=== PATIENT | female | born 1975 | race Caucasian/White ===

== ENCOUNTER 2025-04-15 16:06 | Outpatient (REF) | payer MEDICAID, SELFPAY ==
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
[2025-04-15 18:39] LABS: Hematocrit 34.1 % (37.0-47.0); Hemoglobin 10.4 g/dl (12.0-16.0); Mean Corpuscular HGB Conc 30.5 g/dl (31.0-35.0); Mean Corpuscular Hemoglobin 19.5 pg (27.0-33.0); Mean Corpuscular Volume 64.0 fL (80.0-98.0); NRBC Abs Auto 0.000 X10*3/uL (0.0-0.012); NRBC Pct Auto 0.0 /100WBC (0.0-0.2); Platelet Count 300 X10*3/uL (160-400); Red Blood Count 5.33 X10*6/uL (4.20-5.50); White Blood Count 7.1 X10*3/uL (4.8-10.8)
[2025-04-15 19:09] LABS: Alanine Aminotransferase 27 U/L (0-31); Albumin Level 4.9 g/dL (3.5-5.0); Alkaline Phosphatase 74 U/L (39-117); Anion Gap 12 (12-20); Aspartate Amino Transferase 27 U/L (5-31); Blood Urea Nitrogen 14 mg/dL (9-16); Calcium 9.3 mg/dL (8.4-10.2); Carbon Dioxide 26 mmol/L (22-29); Chloride 105 mmol/L (96-108); Cholesterol 236 mg/dL (<200); Estimated Glomerular Filt Rate > 60; HDL Cholesterol 47 mg/dL (>40); Potassium 3.8 mmol/L (3.3-5.1); Sodium 139 mmol/L (135-145); Total Protein 7.4 g/dL (6.5-8.0); Triglycerides 221 mg/dL (<150)
[2025-04-15 19:25] LABS: Thyroid Stimulating Hormone 3.90 uIU/mL (0.32-4.0)
--- OUTSIDE RECORDS SUMMARY | 2025-04-15 20:25 | XMS_ITS | Encounter Summary ---
Author Organization [employer] Address [address] [place] [address] Care Team Providers Care Jig Bore Tool Maker Name Role Phone Bhupinder George MD Primary Care Prov ider Encounter Details Date Type Department Care Team ([facility] st Contact Info) Description 04/15/2025 Telephone C [facility] MED & PEDS [address] [place], [place] [phone] Bhupinder George MD [address] [place] [address] Social History Tobacco Use Types Packs/Day Years [...] AM EDT documented as of this encounter Miscellaneous Notes * Telephone Encounter - Nohelia Little RN - 04/15/2025 4:10 PM EDT Clarified from PCP pt labs that are needed to be ordered. documented in this encounter Plan of Treatment Upcoming Encounters Date Type Department Care Team (Late st Contact Info) Description 05/13/2025 9:00 AM EST Office Visit [facility] MED & PEDS [address] [place] [address] Bhupinder George MD [address] [place] [address] documented as of this encounter Procedures Procedure Name Priority Date/Time Associated Diagnosis Comments CBC Routine 04/15/2025 4:12 PM EDT Encounter for medical examination to establish care TSH Routine 04/15/2025 4:12 PM EDT Encounter for medical examination to establish care LIPID PANEL, STANDARD Routine 04/15/2025 4:12 PM EDT Encounter for medical examination to establish care COMPREHENSIVE METABOLIC PANEL Routine 04/15/2025 4:12 PM EDT Encounter for medical examination to establish care documented in this encounter Results * (ABNORMAL) Lipid Panel, Standard (04/15/2025 4:12 PM EDT) Triglycerides 221(H) <150 mg/dL [facility] Comment:Desirable Triglyceri de: less than 150 mg/dLBorderline High Triglyceride 150-199 mg/dLHigh Triglyceride: 200-499 mg/dLVery High Triglyceride: greater than or equal to 5OO mg/dL Cholesterol 236(H) <200 mg/dL [facility] Comment:Desirable Cholestero l: less than 200 mg/dLBorderline High Cholesterol: 200-239 mg/dLHigh Cholesterol: greater than 239 mg/dL LDL Cholesterol Calculated 145(H) <100 mg/dL [facility] Comment:Desirable LDL: less than 100 mg/dLNear Optimal/Above Optimal LDL: 110- 129 mg/dLBorderline High LDL: 130-159 mg/dLHigh LDL: 160-189 mg/dLVery High LDL: greater than or equal to 190 mg/dL HDL Cholesterol 47 >40 mg/dL [facility] Comment:Desirable HDL: great er than 40 mg/dL Note: This HDL assay may give artificially low results in patients with liver disease. Blood Venous blood specimen / Unknown 04/15/2025 4:12 PM EDT 04/15/2025 6:20 PM EDT Bhupinder Ramirez MD LAB BLOOD ORDERABL ES Final Result [facility] [address] [place] [phone] * TSH (04/15/2025 4:12 PM EDT) Thyroid Stimulating Hormone 3.90 0.32 - 4.0 uIU/mL [facility] Comment:Note: A sustained TS H level above 2.5 uIU/mL may warrant further investigation. TSH 3rd Generation ([facility]) Blood Venous blood specimen / Unknown 04/15/2025 4:12 PM EDT 04/15/2025 6:20 PM EDT Bhupinder Ramirez MD LAB BLOOD ORDERABL ES Final Result Performing Organization Address City/[facility]/ZIP Co de Phone Number [facility] [address] [place] [address] [phone] * Comprehensive Metabolic Panel (04/15/2025 4:12 PM EDT) Sodium 139 135 - 145 mmol/L [facility] Potassium 3.8 3.3 - 5.1 mmol/L [facility] Chloride 105 96 - 108 mmol/L [facility] Carbon Dioxide 26 22 - 29 mmol/L [facility] Anion Gap 12 12 - 20 [facility] Urea Nitrogen (BUN) 14 9 - 16 mg/dL [facility] Creatinine, Serum 0.62 0.5 - 1.4 mg/dL [facility] Estimated Glomerular Filt Rate >60 [facility] Comment:Chronic Kidney Disea se: Estimated GFR < 60 mL/min/[id number] Kidney Disease: Estimated GFR < 15 mL/min/1.73m2 Glucose 76 60 - 115 mg/dL [facility] Calcium 9.3 8.4 - 10.2 mg/dL [facility] Bilirubin, Total 0.4 0.0 - 1.0 mg/dL [facility] Aspartate Amino Transferase 27 5 - 31 U/L [facility] Alanine Aminotransferase 27 0 - 31 U/L [facility] Total Protein 7.4 6.5 - 8.0 g/dL [facility] Albumin Level 4.9 3.5 - 5.0 g/dL [facility] Alkaline Phosphatase 74 39 - 117 U/L [facility] Blood Venous blood specimen / Unknown 04/15/2025 4:12 PM EDT 04/15/2025 6:20 PM EDT Bhupinder Ramirez MD LAB BLOOD ORDERABL ES Final Result Performing Organization Address City/[facility]/ZIP Co de Phone Number [facility] [address] [place] [phone] [phone] * (ABNORMAL) CBC (04/15/2025 4:12 PM EDT) White Blood Count 7.1 4.8 - 10.8 X10*3/uL [facility] Red Blood Count 5.33 4.20 - 5.50 X10*6/uL [facility] Hemoglobin 10.4(L) 12.0 - 16.0 g/dl [facility] Hematocrit 34.1(L) 37.0 - 47.0 % [facility] Mean Corpuscular Volume 64.0(L) 80.0 - 98.0 fL [facility] Mean Corpuscular Hemoglobin 19.5(L) 27.0 - 33.0 pg [facility] Mean Corpuscular HGB Conc 30.5(L) 31.0 - 35.0 g/dl [facility] Red Cell Distribution Width 15.3 11.0 - 16.0 % [facility] Platelet Count 300 160 - 400 X10*3/uL [facility] Mean Platelet Volume 11.4 9.4 - 12.3 fL [facility] NRBC Pct Auto 0.0 0.0 - 0.2 /100WBC [facility] NRBC Abs Auto 0.000 0.0 - 0.012 X10*3/uL [facility] Blood Venous blood specimen / Unknown 04/15/2025 4:12 PM EDT 04/15/2025 6:16 PM EDT us Bhupinder Ramirez MD LAB BLOOD ORDERABL ES Final Result [facility] [address] [place] [phone] documented in this encounter Visit Diagnoses Diagnosis Encounter for medical examination to establish care documented in this encounter Additional Health Concerns Assessment Noted Time PHQ-9 Depression Total Score: 18 025 11:36 AM EDT documented as of this encounter Care Teams Jig Bore Tool Maker Relationship Specialty Start Date End Date Bhupinder George MD [address] [place] [phone] PCP - General Internal Medicine 02/13/25 documented as of this encounter
--- OUTSIDE RECORDS SUMMARY | 2025-04-15 20:25 | XMS_ITS | Encounter Summary ---
Author Organization [employer] Address [address] [place] [address] Care Team Providers Care Information Systems Coordinator Name Role Phone Bhupinder George MD Primary Care Prov ider Encounter Details Date Type Department Care Team (Latest Contact Info) Description 04/10/2025 Travel Social History Tobacco Use Types Packs/Day Years [...] AM EDT documented as of this encounter Plan of Treatment Upcoming Encounters Date Type Department Care Team (Late st Contact Info) Description 05/13/2025 9:00 AM EST Office Visit [facility] MED & PEDS [address] [place] [address] Bhupinder George MD [address] [place] [address] documented as of this encounter Visit Diagnoses Not on filedocumented in this encounter Additional Health Concerns Assessment Noted Time PHQ-9 Depression Total Score: 18 025 11:36 AM EDT documented as of this encounter Care Teams Information Systems Coordinator Relationship Specialty Start Date End Date Bhupinder George MD [address] [place] [address] PCP - General Internal Medicine 02/13/25 documented as of this encounter
--- OUTSIDE RECORDS SUMMARY | 2025-04-15 20:25 | XMS_ITS | Encounter Summary ---
Author Organization [employer] Address [address] [place] [address] Care Team Providers Care Ada Accommodation Consultant Name Role Phone Bhupinder George MD Primary Care Prov ider Encounter Details Date Type Department Care Team (Latest Contact Info) Description 04/14/2025 Travel Social History Tobacco Use Types Packs/Day [...] Description 05/13/2025 9:00 AM EST Office Visit [facility] MED & PEDS [address] [place] [address] Bhupinder George MD [address] [place] [address] documented as of this encounter Visit Diagnoses Not on filedocumented in this encounter Additional Health Concerns Assessment Noted Time PHQ-9 Depression Total Score: 18 025 11:36 AM EDT documented as of this encounter Care Teams Ada Accommodation Consultant Relationship Specialty Start Date End Date Bhupinder George MD [address] [place] [address] PCP - General Internal Medicine 02/13/25 documented as of this encounter
--- OUTSIDE RECORDS SUMMARY | 2025-04-15 20:25 | XMS_ITS | Encounter Summary ---
Author Organization [employer] Address [address] [place] [address] Care Team Providers Care Adjunct Professor Of Voice Name Role Phone Bhupinder George MD Primary Care Prov ider Encounter Details Date Type Department Care Team (Latest Contact Info) Description 04/15/2025 Travel Social History Tobacco Use Types Packs/Day [...] Description 05/13/2025 9:00 AM EST Office Visit [facility] MED & PEDS [address] [place] [address] Bhupinder George MD [address] [place] [address] documented as of this encounter Visit Diagnoses Not on filedocumented in this encounter Additional Health Concerns Assessment Noted Time PHQ-9 Depression Total Score: 18 025 11:36 AM EDT documented as of this encounter Care Teams Adjunct Professor Of Voice Relationship Specialty Start Date End Date Bhupinder George MD [address] [place] [address] PCP - General Internal Medicine 02/13/25 documented as of this encounter
--- OUTSIDE RECORDS SUMMARY | 2025-04-15 20:25 | XMS_ITS | Patient Health Record ---
Author Organization [facility] Address [address] [place] [address] Care Team Providers Care Electric Dolly Operator Name Role Phone Mary Ellen Gordon Primary Care Provider Ross Florez Unavailable [phone] Allergies Allergen (clinical drug ingredient) Drug/Non Drug Allergy documented on EMR Reaction Allergy Type Onset Date Status clindamycin Clindamycin thrush Drug Allergy Act martita Reason For Referral No Information Medications Medication SIG (Take, Route, Frequency, Duration) Notes Start Date End Date Status Multivitamin Not-Bashir ing Night Splint AFO - L1930 as directed 09/03/2015 Not-Taking clonazePAM Active Omeprazole Not-Takin g Venlafaxine HCl ER 75 MG 1 capsule with food Orally Once a day Not-Taking Medrol (Joe) 4 MG as directed Orally 09/22/2015 Not-Taking Multivitamin Active Tylenol Arthritis Pain Active Citalopram Hydrobromide 40 MG 0.5 tablet Orally Once a day; Duration: 30 day(s) Active Social History Tobacco use other than smoking: Question Answer Notes Are you an other tobacco user? No Problems No Known Problems Plan Of Treatment No Information Insurance Providers Payer Name Payer Address Payer Phone Subscriber Number Group Number Insured Name Patient Relationship to Insured Coverage Start Date Coverage End Date [facility] [address] [place] [address] [id number] Isabelle Silva Self - patient is the insured Medical (General) History Medical History History ICD Code Anemia Anxiety renal cell cancer, kidney cancer Depression Chicken pox Surgical History Surgery Date(Month/Year) partial Nephrectomy 08/26/2010 Hernia Repair x3 / small bowel obstructi on [id number] tubal ligation
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
--- OUTSIDE RECORDS SUMMARY | 2025-04-15 20:25 | XMS_ITS | Encounter Summary ---
Author Organization [employer] Address [address] [place] [address] [address] [place] [address] Care Team Providers Care Social Media Specialist Name Role Phone Bhupinder George MD Primary Care Prov ider Reason for Visit * Reason Onset Date Comments chart prep 04/11/2025 Encounter Details Date Type Department Care Team ([facility] Contact Info) Description 04/11/[address] [facility] [address] [place] [address] Bhupinder George MD [address] [place] [address] chart prep Social History Tobacco Use Types Packs/Day Years [...] encounter Miscellaneous Notes * Telephone Encounter - Saida Crowell MA - 04/11/2025 2:14 PM EDT Chart Prep Labs: not applicable Images: done Referrals: appointment pending Vaccines due: Covid, Flu, PCV20, Tdap, Hep B, and Zoster Screenings: colonoscopy, mammogram, and pap smear Overdue care gaps: Not applicable documented in this encounter Plan of Treatment Upcoming Encounters Date Type Department Care Team ([facility] st Contact Info) Description 05/13/2025 9:00 AM EST Office Visit [facility] [address] [place] [address] Bhupinder George MD [address] [place] [address] documented as of this encounter Visit Diagnoses Not on filedocumented in this encounter Additional Health Concerns Assessment Noted Time PHQ-9 Depression Total Score: 18 025 11:36 AM EDT documented as of this encounter Care Teams Social Media Specialist Relationship Specialty Start Date End Date Bhupinder George MD [address] [place] [address] PCP - General Internal Medicine 02/13/25 documented as of this encounter
--- OUTSIDE RECORDS SUMMARY | 2025-04-15 20:25 | XMS_ITS | Clinical Summary ---
Author Organization [facility] Address [address] [place] [address] Care Team Providers Care Copyright Expert Name Role Phone Unavailable Primary Care Provider Unavailabl e Allergies No known active allergies Immunizations Name Administration Dates Next Due Covid-19 (Pfizer) Dilution Required 08/13/2020,0 07/16/2020 Social History Tobacco Use Types Packs/Day Years Used Date Smoking Tobacco: Never Assessed Sex and Gender Information Value Date Recorded Sex Assigned at Female 08/13/2020 11:41 AM EST Gender Identity Not on file Sexual Orientation Not on file Plan of Treatment Health Maintenance Due Date Last Done Comments Hepatitis B Vaccines (1 of 3 - 3-dose series) 1973 Hepatitis C Screening 1973 Depression Screening 1985 Preventative Health Evaluation 1991 DTap / Tdap / Td (1 - Tdap) 1992 Cervical Cancer Screening (Pap Smear) 1994 Colon Cancer Screening (Colonoscopy) 2018 Breast Cancer Screening (Mammogram) 2023 Shingrix-Zoster Vaccine (1 o f 2) 2023 COVID-19 Vaccine (3 - 2024-2 6 season) 2025 08/13/2020, 07/16/2020 Influenza Vaccine (#1) 2025 Pneumococcal Vaccine Aged Out No long er eligible based on patient's age to complete this topic RSV Ped < 20 months Aged Out No longe r eligible based on patient's age to complete this topic
--- OUTSIDE RECORDS SUMMARY | 2025-04-15 20:26 | XMS_ITS ---
Author Name [facility] Organization Unknown Care Team Organization Name Specialty Phone Email Start Date End Da te [facility] 05/04/2022 02/13/2024
--- OUTSIDE RECORDS SUMMARY | 2025-04-15 20:26 | XMS_ITS | Encounter Summary ---
Author Organization [employer] Address [address] [place] [address] [address] [place] [address] Care Team Providers Care Urgent Care Nurse Practitioner Name Role Phone Bhupinder George MD Primary Care Prov ider Encounter Details Date Type Department Care Team (Late st Contact Info) Description 04/02/2025 Results Follow-Up [facility] [address] [place], [place] [phone] Bg Noel CNP [address] [place], [place] [phone] XR Ribs 2 Views Left Social History Tobacco Use Types Packs/Day Years Used Date Smoking Tobacco: Never Smokeless Tobacco: Never Alcohol Use Standard Drinks/Week Comments Not Currently 0 (1 standard drink = 0.6 oz pur e alcohol) stop 2 years ago Depression Answer Date Recorded Patient Health Questionnaire-9 Score 18 03/22/2025 Patient Health Questionnaire-9 Score 18 03/22/2025 Last PHQ-9: Questionnaire Data Not on file 0 03/22/2025 Depression Answer Date Recorded Patient Health Questionnaire-2 Score 5 03/22/2025 Comments Unknown Sex and Gender Information Value Date Recorded Sex Assigned at Female 02/13/2025 10:47 AM EDT Legal Sex Female 2:51 PM EDT Gender Identity Female 02/13/2025 10:47 AM EDT Sexual Orientation Straight 02/13/2025 10 :47 AM EDT documented as of this encounter Miscellaneous Notes * Result Encounter Note - Bg Noel CNP - 04/02/2025 9:09 AM EDT Please let patient know that her XR of her ribs and her back came back negative for abnormalities or fracture. Dependent on her recent pain level I can refer her to ortho for further evaluation. Thanks! documented in this encounter Plan of Treatment Upcoming Encounters Date Type Department Care Team (Late st Contact Info) Description 05/13/2025 9:00 AM EST Office Visit [facility] [address] [place] [address] Bhupinder George MD [address] [place] [address] documented as of this encounter Visit Diagnoses Not on filedocumented in this encounter Additional Health Concerns Assessment Noted Time PHQ-9 Depression Total Score: 18 025 11:36 AM EDT documented as of this encounter Care Teams Urgent Care Nurse Practitioner Relationship Specialty Start Date End Date Bhupinder George MD [address] [place] [address] PCP - General Internal Medicine 02/13/25 documented as of this encounter
--- OUTSIDE RECORDS SUMMARY | 2025-04-15 20:26 | XMS_ITS | Clinical Summary ---
Author Organization [facility] Address [address] [facility] [address] [place] [phone] Phone Care Team Providers Care Riding Double Name Role Phone Bhupinder George MD Primary Care Prov ider Active Problems Problem Noted Date Diagnosed Date ERIS (generalized anxiety disorder) 03/27/2025 Other chronic pain 03/27/2025 Medical cannabis use 03/27/2025 Generalized anxiety disorder 03/22/2025 Encounters Date Type Department Care Team Description 03/27/2025 3:15 PM EDT Telemedicine [facility] [address] [place] [address] Keyon Rashid NP ERIS (generalized anxiety disorder) (Primary Dx); Other chronic pain; Medical cannabis use from Last 3 Months Social History Tobacco Use Types Packs/Day Years Used Date Smoking Tobacco: Never Assessed Education Answer Date Recorded Are you interested in more education? Not on luis e 03/26/2025 Are you concerned about learning? Not on file 03/26/2025 No 03/26/2025 No 03/26/2025 Digital Access Answer Date Recorded No 03/26/2025 No 03/26/2025 Reliable internet access at home? Not on file 03/26/2025 Device with a working camera? Not on file Comments Unknown Sex and Gender Information Value Date Recorded Sex Assigned at Female 03/26/2025 6:34 PM EDT Legal Sex Female 7:12 PM EDT Gender Identity Female 03/26/2025 6:34 PM EDT Sexual Orientation Not on file Plan of Treatment Upcoming Encounters Date Type Department Care Team (Late st Contact Info) Description 09/18/2025 3:15 PM EDT [facility]icine [facility] [address] [facility] [place] [address] Keyon Rashid NP [address] [facility] [address] [place] [address] [email or web address] Health Maintenance Due Date Last Done Comments LIPID PANEL 1973 DEPRESSION SCREENING 1985 SMOKING Hx and SMOKELESS TOB ACCO SCREENING 1986 HEPATITIS C SCREENING 1991 HIV ONE-TIME SCREENING (18-6 5 YEARS) 1991 PAP SMEAR 1994 MAMMOGRAM 2013 COLOGUARD 2018 COLONOSCOPY 2018 COLORECTAL CANCER SCREENING 2018 FIT TEST 2018 FOBT 2018 SIGMOIDOSCOPY 2018 VIRTUAL COLONOSCOPY 2018 PNEUMOCOCCAL VACCINES (50+ y ears) (1 of 1 - PCV) 2023 ZOSTER VACCINES (1 of 2) 2023 Adult Td,Tdap Booster 02/22/2024 02/21/2014 INFLUENZA VACCINE (#1) 2025 COVID-19 VACCINE (1 - 2024-2 6 season) 2025 RSV VACCINE (1 - 1-dose 75+ series) 2048 HEPATITIS A VACCINES Aged Out No long er eligible based on patient's age to complete this topic HIB VACCINES Aged Out No longer eligi ble based on patient's age to complete this topic MENINGOCOCCAL VACCINES (ACWY) Aged Out No longer eligible based on patient's age to complete this topic MENINGOCOCCAL VACCINES (B) Aged Out N o longer eligible based on patient's age to complete this topic Medical Devices Not on file Insurance [facility] C3 ACO Care Teams Riding Double Relationship Specialty Start Date End Date Bhupinder George MD [address] [place] [id number] PCP - General Internal Medicine 03/26/25 Additional Source Comments The information contained in this document represents components of the legal health record. It is not the complete legal health record.[facility]
--- OUTSIDE RECORDS SUMMARY | 2025-04-15 20:26 | XMS_ITS | Encounter Summary ---
Author Organization [employer] Address [address] [place] [address] 7 [place] [address] Care Team Providers Care Awnings Mechanic Name Role Phone Bhupinder George MD Primary Care Prov ider Encounter Details Date Type Department Care Team (Late Contact Info) Description 03/04/2025 Orders Only [facility] [address] [place] [address] ProviderCarl MD Social History Tobacco Use Types Packs/Day Years Used Date Smoking Tobacco: Never Smokeless Tobacco: Never Alcohol Use Standard Drinks/Week Comments Not Currently 0 (1 standard drink = 0.6 oz pur e alcohol) stop 2 years ago Comments Unknown Sex and Gender Information Value Date Recorded Sex Assigned at Female 02/13/2025 10:47 AM EDT Legal Sex Female 2:51 PM EDT Gender Identity Female 02/13/2025 10:47 AM EDT Sexual Orientation Straight 02/13/2025 10 :47 AM EDT documented as of this encounter Plan of Treatment Upcoming Encounters Date Type Department Care Team (Late Contact Info) Description 05/13/2025 9:00 AM EST Office Visit [facility] [address] [place] [address] Bhupinder George MD [address] [place] [address] documented as of this encounter Procedures Procedure Name Priority Date/Time Associated Diagnosis Comments CT HEAD WO CONTRAST Routine 01/28/2025 10:[address] CERVICAL SPINE WO CONTRAST Routine 01/28/2025 10:04 AM EDT documented in this encounter Results * CT HEAD WO CONTRAST (01/28/2025 10:15 AM EDT) Anatomical Region Laterality Modality Computed Tomogra phy us Historical Provider MD [facility] CT PROCEDURES Final R esult * CT Cervical Spine w/o Contrast (01/28/2025 10:04 AM EDT) Anatomical Region Laterality Modality Spine, C-spine Computed Tomogra phy us Historical Provider MD [facility] CT PROCEDURES Final R esult documented in this encounter Visit Diagnoses Not on filedocumented in this encounter Care Teams Awnings Mechanic Relationship Specialty Start Date End Date Bhupinder George MD [address] [place] [phone] PCP - General Internal Medicine 02/13/25 documented as of this encounter
== END 2025-04-15 16:07 | disposition home or self-care (01) ==
LOC: HO.CHCLDS 16:06
PROVIDERS: Visit Provider Internal Medicine
DX: Z00.00 Encounter for general adult medical examination without abnormal findings (principal)
CPT/HCPCS: 36415; 80053; 80061; 84443; 85027

== ENCOUNTER 2025-05-22 15:12 | Outpatient (REF) | payer MEDICAID, SELFPAY ==
--- OUTSIDE RECORDS SUMMARY | 2025-05-21 17:40 | XMS_ITS | Encounter Summary ---
Author Organization [employer] Address [address] [place] [address] 7 [place] [address] Care Team Providers Care Senior Bookkeeper Name Role Phone Bhupinder George MD Primary Care Prov ider Reason for Referral * Imaging (STAT) - Authorized Specialty Diagnoses / Procedures Referred By Millie montgomery Referred To Contact Radiology Diagnoses Rectal bleeding Procedures CT Abdomen Pelvis w/ Contrast Bg Noel CNP [address] [place] [address] Phone: tel: fax: [facility] [address] [facility], [address] [place] [address] Phone: tel: fax: Referral ID Status Reason Start Date Expiration Date V isits Requested Visits Authorized [id number] Authorized 05/21/2025 05/21/2026 1 1 Encounter Details Date Type Department Care Team (Late st Contact Info) Description 05/21/2025 5:40 PM EST Office Visit [facility] [address] [phone] Bg Noel CNP [address] [place], [place] [phone] Rectal bleeding (Primary Dx); Right lower quadrant abdominal pain Social History Tobacco Use Types Packs/Day Years [...] Access Q2 Not on file 04/10/2025 Comments No Sex and Gender Information Value Date Recorded Sex Assigned at Female 02/13/2025 10:47 AM EDT Legal Sex Female 2:51 PM EDT Gender Identity Female 02/13/2025 10:47 AM EDT Sexual Orientation Straight 02/13/2025 10 :47 AM EDT documented as of this encounter Last Filed Vital Signs Vital Sign Reading Time Taken Comments Blood Pressure 144/86 05/21/2025 5:13 PM EST Pulse 76 05/21/2025 5:13 PM EST Temperature 36.9 C (98.4 F) 05/21/2025 5:13 PM EST Respiratory Rate 20 05/21/2025 5:13 PM EST Oxygen Saturation 98% 05/21/2025 5:13 PM EST Inhaled Oxygen Concentration - - Weight 95.7 kg (211 lb) 05/21/2025 5:13 PM EST Height 172.7 cm (5' 8 ) 05/21/2025 5:13 PM EST Body Mass Index 32.08 05/21/2025 5:13 PM EST documented in this encounter Progress Notes * Alexxis Noel, TILE FINISHER - 05/21/2025 5:40 PM EST Isabelle Silva is a 49 y.o. female who presents for a acute visit. HPI -Reports intense nausea and vomiting that started Tuesday accompanied by abdominal pain, bloody diarrhea, and diaphoresis -reports she was at home at the time and she tried to have her son bring her to the ED, instead sheended up staying home hydrating and went to bed. -She denies any known triggers, no no foods, new medications including Wellbutrin. -reports positive history of IBS, not currently on any medications for this condition. -she denies current fever or chills but she is endorsing lower abdominal pain on her right side. She reports her last BM was Tuesday. Denies rectal bleeding since then. -reports prior episodes similar to this one in the past but not as severe. -ongoing history of anxiety with panic. Problem List[1] Allergies[2] Review of Systems Vitals: 05/21/25 1713 BP: (!) 144/86 BP Location: Left arm Patient Position: Sitting BP Cuff Size: Adult Pulse: 76 Resp: 20 Temp: 98.4 ??F (36.9 ??C) TempSrc: Oral SpO2: 98% Weight: 211 lb (95.7 kg) Height: 5' 8 (1.727 m) Physical Exam Constitutional: Appearance: Normal appearance. She is normal weight. Cardiovascular: Rate and Rhythm: Normal rate and regular rhythm. Pulses: Normal pulses. Heart sounds: Normal heart sounds. No murmur heard. No friction rub. No gallop. Pulmonary: Effort: Pulmonary effort is normal. No respiratory distress. Breath sounds: Normal breath sounds. No wheezing or rales. Abdominal: General: Bowel sounds are normal. Palpations: Abdomen is soft. Tenderness: There is abdominal tenderness. There is guarding and rebound. Comments: +RLQ Neurological: General: No focal deficit present. Mental Status: She is alert and oriented to person, place, and time. Psychiatric: Mood and Affect: Mood normal. Behavior: Behavior normal. Thought Content: Thought content normal. Judgment: Judgment normal. Problem List Items Addressed This Visit None Visit Diagnoses Rectal bleeding - Primary Relevant Medications dicyclomine (Bentyl) 10 MG capsule Other Relevant Orders CBC auto differential Fecal Globin By Immunochemistry Comprehensive Metabolic Panel Iron And Total Iron Binding Capacity CT Abdomen Pelvis w/ Contrast Right lower quadrant abdominal pain Relevant Medications dicyclomine (Bentyl) 10 MG capsule Based on presenting symptoms and abdominal exam, I did recommend urgent evaluation in the ED but ptdeclined due to her anxiety worsening in this setting. She is hemodynamically stable and afebrile in office. Therefore, STAT CT scan ordered and lab work ordered to r/o infectious cause, and help with source of bleeding. Differentials: IBS flare, internal/external hemorrhoids, appendicitis ED precautions discussed for progressive symptoms including symptoms of extensive blood loss I also prescribed bentyl to aid in symptoms. Current Medications[3] [1] Patient Active Problem List Diagnosis Encounter for medical examination to establish care H/O partial nephrectomy Beta thalassemia (CMS/HCC) (FORMERLY [facility]) Class 1 obesity Colon, diverticulosis Depression Irritable bowel syndrome Menorrhagia Migraine Renal stone Dysfunctional uterine bleeding Varicose veins of legs History of partial nephrectomy Ovarian cyst ERIS (generalized anxiety disorder) Moderately severe major depression (CMS/HCC) ([facility]ER[facility]) Anticipatory anxiety Medical cannabis use Osteoarthrosis involving multiple sites but not generalized Other chronic pain Generalized anxiety disorder Acute bilateral low back pain without sciatica [2] Allergies Allergen Reactions Clindamycin Other Other Reaction(s): thrush Oxycodone-Acetaminophen Other Reaction(s): [D]Nausea and vomiting NOS [3] Current Outpatient Medications: acetaminophen (Tylenol 8 Hour) 650 MG ER tablet, Take 650 mg by mouth every 8 (eight) hours if needed for mild pain. Do not crush, chew, or split., Disp: , Rfl: Blood Pressure kit, Check blood pressure twice daily. Once in the morning and once in the evening.,Disp: 1 kit, Rfl: 0 buPROPion (Wellbutrin) 75 MG tablet, Take 1 tablet (75 mg) by mouth 2 times daily., Disp: 60 tablet, Rfl: 11 cholecalciferol (Vitamin D-3) 25 MCG (1000 UT) capsule, Take 1,000 Units by mouth Once per day., Disp: , Rfl: citalopram (CeleXA) 40 MG tablet, Take 1 tablet (40 mg) by mouth Once per day., Disp: 90 tablet, Rfl: 1 clonazePAM (KlonoPIN) 0.5 MG tablet, Take 1 tablet (0.5 mg) by mouth if needed for anxiety for up to 14 days., Disp: 14 tablet, Rfl: 0 clonazePAM (KlonoPIN) 0.5 MG tablet, TAKE 1 TABLET(0.5 MG) BY MOUTH FOR UP TO 14 DAYS NEEDED FORANXIETY, Disp: 14 tablet, Rfl: 0 dicyclomine (Bentyl) 10 MG capsule, Take 1 capsule (10 mg) by mouth 4 times daily., Disp: 120 capsule, Rfl: 11 hydrOXYzine HCl (Atarax) 25 MG tablet, Take 1 tablet (25 mg) by mouth if needed in the morning, at noon, and at bedtime for itching., Disp: 90 tablet, Rfl: 3 lidocaine (Lidoderm) 5 % patch, Apply 3 patches topically Once per day. Remove & discard patch within 12 hours or as directed by MD., Disp: 90 patch, Rfl: 0 meloxicam (Mobic) 15 MG tablet, Take 15 mg by mouth Once per day., Disp: , Rfl: Multiple Vitamin (multivitamin) tablet, Take 1 tablet by mouth Once per day., Disp: , Rfl: tiZANidine (Zanaflex) 4 MG tablet, Take 1 tablet (4 mg) by mouth every 8 (eight) hours if needed for muscle spasms for up to 10 days., Disp: 30 tablet, Rfl: 0 traMADol (Ultram) 50 MG tablet, TAKE 1 TABLET(50 MG) BY MOUTH EVERY 6 HOURS FOR UP TO 5 DAYS NEEDED FOR SEVERE PAIN, Disp: 15 tablet, Rfl: 0 Current Facility-Administered Medications: naloxone (Narcan) nasal spray 4 mg, 4 mg, Nasal, Once, Bg Noel CNP documented in this encounter Plan of Treatment Upcoming Encounters Date Type Department Care Team (Late st Contact Info) Description 06/11/2025 9:00 AM EST Procedure Visit [facility] [address] [place] [address] Cristal Marie MD [address] [place] [address] 06/14/2025 9:30 AM EST Office Visit [facility] [address] [place] [address] Bhupinder George MD [address] [place] [address] Scheduled Orders Name Type Priority Associated Diagnoses Orde r Schedule CBC auto differential Lab Routine Rectal bleeding Expected: 05/21/2025 (Approximate), Expires: 05/21/2026 Fecal Globin By Immunochemistry Lab Routine Rectal bleeding Expected: 05/21/2025 (Approximate), Expires: 05/21/2026 Comprehensive Metabolic Panel Lab Routine Rectal bleeding Expected: 05/21/2025 (Approximate), Expires: 05/21/2026 Iron And Total Iron Binding Capacity Lab Routine Rectal bleeding Expected: 05/21/2025, Expires: 05/21/2026 CT Abdomen Pelvis w/ Contrast Imaging STAT Rectal bleeding Expected: 05/21/2025, Expires: 05/21/2026 documented as of this encounter Visit Diagnoses Diagnosis Rectal bleeding- Primary Hemorrhage of rectum and anus Right lower quadrant abdominal pain documented in this encounter Additional Health Concerns Assessment Noted Time PHQ-9 Depression Total Score: 18 025 11:36 AM EDT documented as of this encounter Care Teams Senior Bookkeeper Relationship Specialty Start Date End Date Bhupinder George MD [address] [place] [address] PCP - General Internal Medicine 02/13/25 documented as of this encounter
--- OUTSIDE RECORDS SUMMARY | 2025-05-22 17:41 | XMS_ITS | Encounter Summary ---
Author Organization [employer] Address [address] [place] [address] [address] [place] [address] Care Team Providers Care Mesh Cutter Name Role Phone Bhupinder George MD Primary Care Prov ider Encounter Details Date Type Department Care Team (Late st Contact Info) Description 04/02/2025 Results Follow-Up [facility] [address] [place], [place] [phone] Bg Noel CNP [address] [place], [place] [phone] XR Ribs 2 Views Left Social History [...] Description 06/11/2025 9:00 AM EST Procedure Visit [facility] [address] [place] [address] Cristal Marie MD [address] [place] [address] 06/14/2025 9:30 AM EST Office Visit [facility] [address] [place] [address] Bhupinder George MD [address] [place] [address] documented as of this encounter Visit Diagnoses Not on filedocumented in this encounter Additional Health Concerns Assessment Noted Time PHQ-9 Depression Total Score: 18 025 11:36 AM EDT documented as of this encounter Care Teams Mesh Cutter Relationship Specialty Start Date End Date Bhupinder George MD [address] [place] [address] PCP - General Internal Medicine 02/13/25 documented as of this encounter
--- OUTSIDE RECORDS SUMMARY | 2025-05-22 17:41 | XMS_ITS | Clinical Summary ---
Author Organization [facility] Address [address] [place] [address] Care Team Providers Care Watch Repairer Apprentice Name Role Phone [place] aCtes MD Primary Care Provide r Social History Tobacco Use Types Packs/Day Years Used Date Smoking Tobacco: Never Smokeless Tobacco: Never Comments Unknown Sex and Gender Information Value Date Recorded Sex Assigned at Not on file Legal Sex Female 8:46 AM EST Gender Identity Not on file Sexual Orientation Not on file Obstetrics History Last Filed Vital Signs Vital Sign Reading Time Taken Comments Blood Pressure 131/81 09/20/2023 5:26 PM EDT Pulse 73 09/20/2023 5:26 PM EDT Temperature - - Respiratory Rate - - Oxygen Saturation - - Inhaled Oxygen Concentration - - Weight - - Height - - Body Mass Index - - Plan of Treatment Health Maintenance Due Date Last Done Comments Colorectal Cancer Screening: Colonoscopy 1973 Hepatitis B Vaccines (1 of 3 - 19+ 3-dose series) 1992 Pneumococcal Vaccine: 50+ Years (1 of 2 - PCV) 1992 Cervical Cancer Screening: P ap Smear 1994 Breast Cancer Screening 03/17/2020 03/17/2018 HIV Screening 05/30/2022 Hepatitis C Screening 05/30/2022 Social Influencers of Health Screening 05/30/2022 RSV Immunization Adult Patients (1 - Risk 50-74 years 1-dose series) 2023 Zoster Vaccines (1 of 2) 2023 DTaP,Tdap,and Td Vaccines (3 - Td or Tdap) 02/22/2024 02/21/2014, 08/08/1998 Depression Screening 06/27/2024 COVID-19 Vaccine (3 - 2024-2 6 season) 2025 08/13/2020, 07/16/2020 Influenza Vaccine (#1) 2025 02/25/2015 HIB Vaccines Aged Out No longer eligi [...] on patient's age to complete this topic MMR Vaccines Aged Out No longer eligi ble based on patient's age to complete this topic Meningococcal ACWY Vaccine Aged Out N o longer eligible based on patient's age to complete this topic Meningococcal B Vaccine Aged Out No l onger eligible based on patient's age to complete this topic RSV Immunization Patients Under 20 months Aged Out No longer eligible b ased on patient's age to complete this topic Varicella Vaccines Aged Out No longer eligible based on patient's age to complete this topic Procedures Procedure Name Priority Date/Time Associated Diagnosis Comments [facility] SCREENING DIGITAL Routine 03/17/2018 1:54 PM EDT Encounter for screening mammogram for malignant neoplasm of breast from Last 3 Months or Most Recently Relevant to Health Maintenance Results * [facility] SCREENING DIGITAL (03/17/2018 1:54 PM EDT) Anatomical Region Laterality Modality Mammography 03/14/2018 1:49 PM EDT Narrative 03/17/2018 1:54 PM EDT [facility] Diagnostic Imaging Department [address] [place] [address] Patient: VICKEY,ISABELLE Zimmerman /Age/Sex: 1975 - 42 - F Unit#: [id number] Location/Status: [facility]/REG CLI Mnemonic/Ordering Site: [facility] Ordering Physician: HERNANDEZ MARTINEZ MD Mayela Screening Digital - 03/16/18 - 1723 History: Bilateral breast cancer screening. Technique: Digital mammography. Conventional CC and MLO projections with tomosynthesis MLO views and computer aided detection. Comparison made with previous mammograms from 03/09/2017, 07/30/2015 and 01/28/2014. Correlation made with previous left breast ultrasound imaging most recently 03/11/2017. Findings: Breast tissue consists of fatty and fibroglandular tissue with moderate complexity, potentially obscuring small lesions, category c density. Tissue asymmetries including discrete oval asymmetries within the mid left breast corresponding with cystic changes shown on ultrasound are without concerning interval change. There is no suspicious group of microcalcification, suspicious mass, architectural distortion or suspicious change in breast density within either breast. Impression: No mammographic evidence of malignancy. BIRADS Category 2: Benign Findings, 3342F [id number], [id number] A negative mammogram in the face of a suspicious abnormality does not exclude the possibility of malignancy nor alter the indications for biopsy. Note: Patient information entered into a reminder system with a target due date for the next mammogram; PQRI II [id number] Dictating Physician: ОЛЕГ CARMICHAEL MD Electronically Signed by: ОЛЕГ CARMICHAEL MD Dic Date/Time: 03/17/18 1352 Sign date/Time: 03/17/18 1354 Procedure Note Олег Carmichael MD - 06/15/2022 [facility] Diagnostic Imaging Department [address] [place] [address] Patient: ISABELLE HURD /Age/Sex: 1975 - 42 - F Unit#: [id number] Location/Status: [facility]/REG CLI Mnemonic/Ordering Site: [facility] Ordering Physician: HERNANDEZ MARTINEZ MD Mayela Screening Digital - 03/16/18 - 1722 History: Bilateral breast cancer screening. Technique: Digital mammography. Conventional CC and MLO projectionswith tomosynthesis MLO views and computer aided detection. Comparison made with previous mammograms from 03/09/2017, 07/30/2015 and01/28/2014. Correlation made with previous left breast ultrasound imaging mostrecently 03/11/2017. Findings: Breast tissue consists of fatty and fibroglandular tissue with moderate complexity, potentially obscuring small lesions, category cdensity. Tissue asymmetries including discrete oval asymmetries within the midleft breast corresponding with cystic changes shown on ultrasound are without concerning interval change. There is no suspicious group ofmicrocalcification, suspicious mass, architectural distortion or suspicious change in breastdensity within either breast. Impression: No mammographic evidence of malignancy. BIRADS Category 2: Benign Findings, [id number] [id number], [id number] A negative mammogram in the face of a suspicious abnormality does notexclude the possibility of malignancy nor alter the indications for biopsy. Note: Patient information entered into a reminder system with a targetdue date for the next mammogram; PQRI II [id number] Dictating Physician: ОЛЕГ CARMICHAEL MD Electronically Signed by: ОЛЕГ CARMICHAEL MD Dic Date/Time: 03/17/18 1351 Sign date/Time: 03/17/18 1351 us Hernandez Martinez MD IMG BI PROCEDURES Final Result from Last 3 Months or Most Recently Relevant to Health Maintenance Care Teams Watch Repairer Apprentice Relationship Specialty Start Date End Date Christopher Cates MD PCP - General Internal Medicine 12/04/18
--- OUTSIDE RECORDS SUMMARY | 2025-05-22 17:41 | XMS_ITS | Clinical Summary ---
Author Organization [facility] Address [address] [place] [address] Care Team Providers Care Auto Leasing Manager Name Role Phone Unavailable Primary Care Provider [...]
--- OUTSIDE RECORDS SUMMARY | 2025-05-22 17:41 | XMS_ITS | Data Portability ---
Author Organization BARBARA Ray [facility], [address] Address [address] [place] [address] Care Team Providers Care Sheet Tester Name Role Phone KARYN MTZ Primary Care Provider Assessment No assessment recorded. Plan of Treatment Reminders Order Date Submit Date Provider Last Modified By Organization Details Last Modified Time Details Appointments None recorded. Lab rapid strep group A, throat 2022 023 [email or web address], [address] [place], [address], 3 11:56:26 mononucleos is, heterophile Ab, blood 2022 023 [email or web address], [address] [place], [address], 3 11:56:27 streptococc us group A, culture, throat 2022 023 [facility], [address] [place] [address], [place], [address], 3 16:06:58 Referral None recorded. Procedures None recorded. Surgeries None recorded. Imaging None recorded. Medication Orders doxycycline hyclate 100 mg capsule 2022 023 [id number], [address], [place], [phone], 3 11:58:19 Patient TargetsNo targets recorded. Patient Instructions Encounter Date Encounter Id Patient Instructions Last Modified By Organization Details Last Modified Time 02/06/2023 [id number] sore throat: car e instructions Not available 02/06/2023 11:56:22 Your sore throat is possible caused by a virus or by strep which wasn't picked up on the rapid. We are going to send the culture to the lab to confirm and you will be notified when results are available. You do not need antibiotics at this time, continue to treat your symptoms with fluids rest tylenol and ibuprofen. If your culture comes back positive you may need antibiotics at that time and they would be sent in to your pharmacy. Follow up with your PCP as needed. As for the infection on neck take the antibiotic as directed and now that it has been opened it should begin to heal. Monitor for worsening symptoms and if it continue to worsen while on antibiotics please go to the ED for eval as this is a sign of resistant infection . Not available 02/06/2023 11:59:07 Reason for Referral None Reported. Results Created Date Observation Date Name Description Value Unit Range Abnormal Flag Note LastModifiedBy Organization Detail LastModifiedTime 02/07/2002/08/2023 BETA STREP GP A CULTU RE beta strep gp A culture COMMEN T abnormal Beta- hemol ytic colon ies, not group A Strep tococ cus isola neela. Refer ence Range : Negat martita Penic illin and ampic illin are drugs of choic e for treat ment of beta- hemol ytic strep tococ lexi infec tions . Susce ptibi lity testi ng of penic illin s and other beta- lacta m agent s appro raphael by the FDA for treat ment of beta- hemol ytic strep tococ lexi infec tions need not be perfo rmed routi tammy becau se nonsu scept ible isola yvrose are extre esequiel rare in any beta- hemol ytic strep tococ cus and have not been repor neela for Strep tococ cus pyoge josue (grou p A). (CLSI ) Not Available [facility] ([facility]) [address] [facility], [place], [address], 02/08/2023 16:06:58 02/07/2002/06/2023 monon ucleo sis, heter ophil e Ab, blood Unknown Analyte negati ve Not Available [address] [place], [address], 02/06/2023 11:29:05 02/07/2002/06/2023 rapid strep group A, throa t Unknown Analyte negati ve Not Available [address] [place], [address], 02/06/2023 11:00:18 Result Notes None recorded. Problems Name Problem SNOMED Code Status Onset Date Resolution Date Notes Provider Name and Address Organization Details Recorded Time Malignant neoplasm of kidney 005547637 Completed 202202/06/2023 JOSEPH DRINKWINE null, [place] - [facility] 3 10:52:35 Beta thalassemia 80290594 Active 2022 JOSEPH DRINKWINE null, [place] - [facility] 3 10:53:04 Anxiety 12104672 Active 2022 JOSEPH DRINKWINE null, [place] - [facility] 3 10:53:12 Depressive disorder 05181262 Active 2022 JOSEPH DRINKWINE null, [place] - [facility] 3 10:53:22 Problem Notes None recorded. Procedures Surgical History Date Name Laterality Status Provider Name and Address Organization Details Recorded Time 02/07/20 I&D, without packing completed BARBARA Rangel [address] [place], [place] [address], [address], [place] - [facility] 02/06/2023 12:00:43 hernia repair completed JOSEPH DRINKWINE P A - [facility] 02/06/2023 10:53:39 partial nephrectomy completed JOSEPH DRINKWINE [place] - [facility] 02/06/2023 10:53:53 Imaging Results None recorded. Procedure Notes None recorded. Medical Equipment None Reported. Allergies Allergen ID Allergen Name Allergen Category Reaction Reaction Severity Criticality Documentation Date Start Date Code Code System Note Provider Name and Address Organization Details Recorded Time 932650 clindamyc in Not available rash Not available Not available 02/06/2023 2582 RxNorm thrus h BARBAR[facility] 3 10:50:58 Medications Name Sig Start Date Stop Date Status Note LastModified by Organization Details LastModified Time nystatin 100,000 unit/mL oral suspension TAKE 4 ML BY MOUTH 4 TIMES A DAY 02/06 completed Not Available Not Available Not Available doxycycline hyclate 100 mg capsule TAKE 1 CAPSULE BY MOUTH TWICE DAILY FOR 7 DAYS active Not Available Not Available No t Available clindamycin HCl 300 mg capsule TAKE 1 CAPSULE BY MOUTH EVERY 6 HOURS FOR 7 DAYS 02/06 completed Not Available Not Available Not Available citalopram 40 mg tablet active Not Available Not Available Not Available fluconazole 150 mg tablet TAKE 1 TABLET BY MOUTH ONCE 02/06 completed Not Available Not Available Not Available clonazepam 0.5 mg tablet TAKE 1 TABLET BY MOUTH AT HOUR OF SLEEP active Not Available Not Available No t Available naproxen 500 mg tablet TAKE 1 TABLET BY MOUTH TWICE DAILY NEEDED active Not Available Not Available No t Available oxycodone 5 mg tablet TAKE 1 TABLET BY MOUTH EVERY 4 HOURS NEEDED FOR SEVERE PAIN 02/06 completed Not Available Not Available Not Available cyclobenzapr ine 5 mg tablet active Not Available Not Available Not Available Multi Vitamin active Not Available Not Available Not Available Vitals Date Recorded Body height Body mass index (BMI) Body weight Pain severity - 0-10 verbal numeric rating [Score] - Reported Body temperature Respiratory rate Heart rate Oxygen saturation Systolic And Diastolic Provider Name and Address Organization Details Last Updated DateTime 3 172.72 cm 33 kg/m2 76498.5 4 g 8 98.1 [degF] 16 /min 76 /min 100 % 110/64 mm[Hg] JOSEPH Benedict [facility] 3 10:57:29 Social History Question Answer Notes LastModified by Organizat ion Details LastModified Time Tobacco Smoking Status Never Smoker BARBARA [facility] 02/06/2023 10:54:44 Which Illicit Or Recreational Drugs Have You Used? Marijuana Information not available 02/06/2023 Have You Recently Traveled Abroad? No Information not available 02/06/2023 Sex: Unknown Functional Status Question Answer Note LastModified by Organizat ion Details LastModified Time Do you use any illicit or recreational drugs? Yes Information not available 02/06/2023 Do you or have you ever used any other forms of tobacco or nicotine? No Information not available 02/06/2023 Mental Status None recorded. Family History Relationship Description Onset Age of this Age Resolved Age Notes LastModified by Organization Details LastModified Time Mother Diabetes mellitus [email or web address] Not available 02/06 10:54:23 Mother Hypertensive disorder [email or web address] Not available 02/06 10:54:30 Medical History No medical history recorded. Gynecological HistoryNo gynecological history recorded. Obstetrics History GPAL:G 0 P 0 0 0 0 Immunizations Vaccine Type Date Status Note Provider Nam e and Address Organization Details Recorded Time Tdap 02/21/2014 completed BARBARA [facility] 02/06/2023 10:49:53 Influenza, split virus, quadrivalent, PF 02/25/2015 completed BARBARA [facility] 02/06/2023 10:49:53 Past Encounters Encounter ID Performer Location Encounter Start Date Encounter Closed Date Diagnosis/Indication Diagnosis SNOMED-CT Code Diagnosis ICD10 Code Diagnosis IMO Codes Diagnosis Note [id number] [place] [address] 10/27/2020 19:29:31 10/27/2020 20:23:03 [id number] [place] [address] 08/24/2020 08:18:49 08/24/2020 09:04:04 [id number] BARBARA Randolph [address] [place] [address] 02/06/2023 10:43:05 02/06/2023 12:09:59 Acute pharyngitis 269547080 J02.9 Cellulitis and abscess of neck 163596000 L03.221 Health Concerns Section Related Observation LastModified by Organization Detai ls LastModified Time None Recorded Concern Status LastModified by Organization Details LastModified Time None Recorded Advance Directives Directive None Recorded Payers Insurance Date Sequence Insurance Name Policy Number Policy Quintero Covered Member ID Quintero Member ID Guarantor Name 02/06/2023 1 [facility] Isabelle Silva [id number] sIabelle Silva 02/05/2023 1 [facility] [id number] Isabelle Silva [id number] Isabelle Silva Notes Date Note Type Note Provider Name and Address Organization Details Recorded Time 3 text/html Sore throatReported by PatientSore ThroatFor associated symptoms, patient reportsweaknessbut reportsno cough,no shortness of breath,no wheezing,no vomiting, andno nausea(fatigue). For source of patient information, patient reportsinformation obtained from patientandpatient arrived at urgent care ambulatory. For location, patient reportsthroat. For severity, patient reportsmoderate. For onset/timing, patient reports4 days. For context, patient reportsno sick contactsandno foreign travel. BARBARA Rangel [address] [place], [address], [place] - [facility] 02/06/2023 12:01:57 OBGyn Episode No OBEpisode recorded.
--- OUTSIDE RECORDS SUMMARY | 2025-05-22 17:41 | XMS_ITS | Data Portability ---
Author Organization [facility], Main Office Address [address] [place] [address] Care Team Providers Care Blade Changer Name Role Phone HERNANDEZ MARTINEZ Primary Care Provider JAI LEE Algebra Teacher MICHAEL MYERS Environmental Compliance Specialist GONSALO RODRIGUEZ Tank Wagon Driver Assessment Encounter Date Assessment Date Assessment LastModified by Organization Details LastModified Time 04/19/2016 04/19/2016 History of multiple abdominal surgeries and symptoms of obstruction. We will try to get CT abdomen to rule out partial SBO. [email or web address] Not available 04/20/2016 09:06:13 Plan of Treatment Reminders Order Date Submit Date Provider Last Modified By Organization Details Last Modified Time Details Appointments None recorde d. Lab lipid panel, serum 2017 018 [facility], [address] [place] [address], [id number], 8 09:20:57 CBC w/ auto diff 2017 018 KRYSTEN Not available 8 20:05:35 iron + total iron-bi nding capacit y (TIBC), serum 2017 018 KRYSTEN Not available 8 21:42:19 vitamin B12, serum 2017 018 KRYSTEN Not available 8 22:03:32 CMP, serum or plasma 2017 018 KRYSTEN Not available 8 21:42:18 TSH + free T4, serum 2017 018 abolcun Not available 9 09:45:17 vitamin D, 25-hydr oxy, total, serum 2017 018 KRYSTEN Not available 8 22:11:34 H pylori Ab, serum 2015 016 [id number] [facility] (Centralized Electronic Ordering - All Locations), Patient Can Go To The Location Of Their Choice, [id number] 6 04:32:05 CBC w/ auto diff 2015 016 [email or web address] [id number] [facility] (Centralized Electronic Ordering - All Locations), Patient Can Go To The Location Of Their Choice, [id number] 6 04:32:05 hepatic functio n panel, serum 2015 016 [email or web address] [id number] [facility] (Centralized Electronic Ordering - All Locations), Patient Can Go To The Location Of Their Choice, [id number] 6 04:32:05 lipase, serum or plasma 2015 016 [email or web address] [id number] [facility] (Centralized Electronic Ordering - All Locations), Patient Can Go To The Location Of Their Choice, [id number] 6 04:32:05 pregnan cy test, serum or plasma 2015 016 [email or web address] Not available 6 10:48:52 CT + NG DNA, PCR, urine 2015 016 KRYSTEN Not available 6 14:03:12 urinaly sis, dipstic k 2015 016 awychowski In-Office Order, Internal Use Only DO Not Attach Compendium DO Not Attach Compendium, Do Not Delete/merge, [id number] 6 13:11:36 culture , urine 2015 016 KRYSTEN [facility] (Centralized Electronic Ordering - All Locations), Patient Can Go To The Location Of Their Choice, [id number] 6 07:16:33 urinaly sis, complet e 2015 016 KRYSTEN [facility] (Centralized Electronic Ordering - All Locations), Patient Can Go To The Location Of Their Choice, [id number] 6 18:12:41 LDL, calcula radha, serum (OBS) 2014 015 [email or web address] Not available 6 10:41:35 HDL-C cholest steffen, serum 2014 015 mdalessandro Not available 5 19:55:47 cholest steffen + triglyc erides, serum 2014 015 sabdulraheem Not available 6 10:41:35 vitamin D, 25-hydr oxy, total, serum 2014 015 KRYSTEN Not available 5 23:18:08 CMP, serum or plasma 2014 015 mdalessandro Not available 5 19:55:47 CBC w/ auto diff 2014 015 mdalessandro Not available 5 19:55:47 iron + total iron-bi nding capacit y (TIBC), serum 2014 015 mdalessandro Not available 5 19:55:47 vitamin B12 + folate, serum or blood 2014 015 sabdulraheem Not available 6 10:41:34 vitamin B12, serum 2014 015 mdalessandro Not available 5 19:55:47 TSH + free T4, serum 2014 015 sabdulraheem Not available 6 10:41:34 Referral gynecol ogist referra l 2017 018 abolcun Not available 9 09:58:00 nutriti onist/d ietitia n referra l 2017 018 abolcun Not available 8 09:27:37 Procedures None recorde d. Surgeries None recorde d. Imaging MAMMO, screeni ng, bilater al - Perform Diagnos tic Mammogr am and Breast Ultraso und if needed / Perform Ultraso und Guided Aspirat ion and/or Breast Biopsy if warrant ed 2017 018 [facility] (Ct Scan), [address] [place], [address], 8 15:02:16 CT, abdomen + pelvis, w/wo contras t - Worseni ng vomitin g and nausea with history of prior SBO. Had right partial nephrec amanda for kidney cancer in 2011. Rule out SBO or worseni ng renal cell carcino ma. 2015 016 [email or web address] [id number] Not available 6 04:32:07 ultraso und, pelvic transab dominal & transva ginal - heavy vaginal bleedin g, abd pain, had normal menses 2 weeks ago 2015 016 [facility] (Ultrasound), [address] [place], [address], 6 09:52:50 Medication Orders triamci nolone acetoni de 0.1 % topical cream 2017 018 INTERFACE [facility], [address] [place] [address], [id number], 8 14:42:12 sertral ine 25 mg tablet 2017 018 awgeoffowski [facility] #06671, [address], [place], [id number], 9 09:50:23 ondanse dwight HCl 4 mg tablet 2015 016 abolcun [facility] #89401, [address], [place], [id number], 8 13:49:08 Effexor XR 75 mg capsule ,extend ed release 2014 015 mara [facility] #61463, [address], [place], [id number], 8 13:49:32 omepraz ole 20 mg capsule ,delaye d release 2014 015 lauryn [facility] #57132, [address], [place], [id number], 6 10:10:15 Patient TargetsNo targets recorded. Patient Instructions Encounter Date Encounter Id Patient Instructions Last Modified By Organization Details Last Modified Time 06/17/2015 [id number] To call or return for worsening or concerns [email or web address] Not available 06/17/2015 09:39:33 Medications were reviewed at this visit and reconciled. Changes in the active medications are reflected in the current medication list and discussed with patient with instructions for follow up as needed. Printed medication list provided to the patient as part of the visit summary.I have reviewed the note and agree with the assessment and plan of care. [email or web address] Not available 06/17/2015 19:55:47 11/12/2015 [id number] To call or return for worsening or concerns jthabet Not available 11/12/2015 10:16:58 Medications (OTC, herbal therapies, supplements) reviewed and reconciled with patient and or caregiver, including potential side effects, drug interactions, instructions, and the consequences of not taking medication. Reviewed potential barriers to medication adherence, such as side effects from medication or cost of medication. I have reviewed the note and agree with the assessment and plan of care. [email or web address] Not available 11/12/2015 13:11:36 04/19/2016 [id number] nausea and vomiting: care instructions [email or web address] Not available 04/19/2016 14:37:35 02/17/2018 [id number] Cervical Cancer Screening awychowski Not available 02/17/2018 14:42:10 Starting a Weight-Loss Plan: Care Instructions [email or web address] Not available 02/17/2018 14:42:09 Reason for Referral Algebra Teacher Referral for Sc reening for malignant neoplasm of cervix Referring Physician: [facility], Encounter Date: 02/17/2018 Branch Director/dietitian Refer ral for Obesity Referring Physician: [facility], Encounter Date: 02/17/2018 Results Created Date Observation Date Name Description Value Unit Range Abnormal Flag Note LastModifiedBy Organization Detail LastModifiedTime 11/12/19 16 11/12/2015 urina lysis , dipst ick Leukocytes Negati ve Not Available In-Office Order Internal Use Only DO Not Attach Compendium DO Not Attach Compendium, Do Not Delete/merge, 11/12/2015 10:03:28 11/12/1911/12/2015 urina lysis , dipst ick Nitrite negati ve Not Available In-Office Order Internal Use Only DO Not Attach Compendium DO Not Attach Compendium, Do Not Delete/merge, 11/12/2015 10:03:28 11/12/1911/12/2015 urina lysis , dipst ick Urobilinogen .2 Not Available In-Of fice Order Internal Use Only DO Not Attach Compendium DO Not Attach Compendium, Do Not Delete/merge, 11/12/2015 10:03:28 11/12/1911/12/2015 urina lysis , dipst ick Protein Negati ve Not Available In-Office Order Internal Use Only DO Not Attach Compendium DO Not Attach Compendium, Do Not Delete/merge, 11/12/2015 10:03:28 11/12/1911/12/2015 urina lysis , dipst ick pH 6.0 Not Available In-Office Order Internal Use Only DO Not Attach Compendium DO Not Attach Compendium, Do Not Delete/merge, 11/12/2015 10:03:28 11/12/1911/12/2015 urina lysis , dipst ick Blood Large Not Available In-Office Order Internal Use Only DO Not Attach Compendium DO Not Attach Compendium, Do Not Delete/merge, 11/12/2015 10:03:28 11/12/1911/12/2015 urina lysis , dipst ick Specific [place] 1.010 Not Available In-Off ice Order Internal Use Only DO Not Attach Compendium DO Not Attach Compendium, Do Not Delete/merge, [facility] 11/12/2015 10:03:28 11/12/19 16 11/12/2015 urina lysis , dipst ick Ketone Negati ve Not Available In-Office Order Internal Use Only DO Not Attach Compendium DO Not Attach Compendium, Do Not Delete/merge, [facility] 11/12/2015 10:03:28 11/12/19 16 11/12/2015 urina lysis , dipst ick Bilirubin Negati ve Not Available In-Office Order Internal Use Only DO Not Attach Compendium DO Not Attach Compendium, Do Not Delete/merge, [facility] 11/12/2015 10:03:28 11/12/19 16 11/12/2015 urina lysis , dipst ick Glucose Negati ve Not Available In-Office Order Internal Use Only DO Not Attach Compendium DO Not Attach Compendium, Do Not Delete/merge, [facility] 11/12/2015 10:03:28 11/12/19 16 11/12/2015 urina lysis , dipst ick Appearance Clear Not Available In-Offi ce Order Internal Use Only DO Not Attach Compendium DO Not Attach Compendium, Do Not Delete/merge, [facility] 11/12/2015 10:03:28 11/12/19 16 11/12/2015 urina lysis , dipst ick Color Pale Yellow Not Available In-Office Order Internal Use Only DO Not Attach Compendium DO Not Attach Compendium, Do Not Delete/merge, [facility] 11/12/2015 10:03:28 06/17/20 15 06/17/2015 CBC w/ auto diff WBC 7.2 K/mm3 (4.0-1 1.0) Not Available [facility] (Centralized Electronic Ordering - All Locations) Patient Can Go To The Location Of Their Choice, 06/17/2015 14:11:32 06/17/20 15 06/17/2015 CBC w/ auto diff RBC 5.42 M/mm3 (4.20- 5.40) high Not Available [facility] (Centralized Electronic Ordering - All Locations) Patient Can Go To The Location Of Their Choice, 06/17/2015 14:11:32 06/17/20 15 06/17/2015 CBC w/ auto diff HGB 10.6 gm/dL (12.0- 16.0) low Not Available [facility] (Centralized Electronic Ordering - All Locations) Patient Can Go To The Location Of Their Choice, 06/17/2015 14:11:32 06/17/20 15 06/17/2015 CBC w/ auto diff HCT 35.0 % (37.0- 47.0) low Not Available [facility] (Centralized Electronic Ordering - All Locations) Patient Can Go To The Location Of Their Choice, 06/17/2015 14:11:32 06/17/20 15 06/17/2015 CBC w/ auto diff MCV 64.6 fL (80.0- 100.0) low Not Available [facility] (Centralized Electronic Ordering - All Locations) Patient Can Go To The Location Of Their Choice, 06/17/2015 14:11:32 06/17/20 15 06/17/2015 CBC w/ auto diff MCH 19.6 pg (27.0- 34.0) low Not Available [facility] (Centralized Electronic Ordering - All Locations) Patient Can Go To The Location Of Their Choice, 06/17/2015 14:11:32 06/17/20 15 06/17/2015 CBC w/ auto diff MCHC 30.3 % (33.0- 37.0) low Not Available [facility] (Centralized Electronic Ordering - All Locations) Patient Can Go To The Location Of Their Choice, 06/17/2015 14:11:32 06/17/20 15 06/17/2015 CBC w/ auto diff plt 301 K/mm3 (150-4 60) Not Available [facility] (Centralized Electronic Ordering - All Locations) Patient Can Go To The Location Of Their Choice, 06/17/2015 14:11:32 06/17/20 15 06/17/2015 CBC w/ auto diff RDW-SD 34.7 fL (<47.0 ) Not Available [facility] (Centralized Electronic Ordering - All Locations) Patient Can Go To The Location Of Their Choice, 06/17/2015 14:11:32 06/17/20 15 06/17/2015 CBC w/ auto diff MPV 11.4 fL (9.4-1 2.4) Not Available [facility] (Centralized Electronic Ordering - All Locations) Patient Can Go To The Location Of Their Choice, [id number] 06/17/2015 14:11:32 06/17/20 15 06/17/2015 CBC w/ auto diff automated NRBC 0.0 #/100 _WBC' s Not Available [facility] (Centralized Electronic Ordering - All Locations) Patient Can Go To The Location Of Their Choice, [id number] 06/17/2015 14:11:32 06/17/20 15 06/17/2015 CBC w/ auto diff abs. NRBC 0.0 K/mm3 Not Available [facility] (Centralized Electronic Ordering - All Locations) Patient Can Go To The Location Of Their Choice, 06/17/2015 14:11:32 06/17/20 15 06/17/2015 CBC w/ auto diff neut # 4.7 K/mm3 (1.3-7 .0) Not Available [facility] (Centralized Electronic Ordering - All Locations) Patient Can Go To The Location Of Their Choice, [id number] 06/17/2015 14:11:32 06/17/20 15 06/17/2015 CBC w/ auto diff lymph # 1.7 K/mm3 (0.8-3 .1) Not Available [facility] (Centralized Electronic Ordering - All Locations) Patient Can Go To The Location Of Their Choice, [id number] 06/17/2015 14:11:32 06/17/20 15 06/17/2015 CBC w/ auto diff mono# 0.6 K/mm3 (0.4-0 .9) Not Available [facility] (Centralized Electronic Ordering - All Locations) Patient Can Go To The Location Of Their Choice, 06/17/2015 14:11:32 06/17/20 15 06/17/2015 CBC w/ auto diff eo # 0.1 K/mm3 (0.0-0 .4) Not Available [facility] (Centralized Electronic Ordering - All Locations) Patient Can Go To The Location Of Their Choice, 06/17/2015 14:11:32 06/17/20 15 06/17/2015 CBC w/ auto diff baso # 0.1 K/mm3 (0.0-0 .1) Not Available [facility] (Centralized Electronic Ordering - All Locations) Patient Can Go To The Location Of Their Choice, 06/17/2015 14:11:32 06/17/20 15 06/17/2015 CBC w/ auto diff abs. imm gran 0.0 K/mm3 Not Available [facility] (Centralized [facility] Ordering - All Locations) Patient Can Go To The Location Of Their Choice, 06/17/2015 14:11:32 06/17/20 15 06/17/2015 CBC w/ auto diff neut 65.0 % (44-76 ) Not Available [facility] (Centralized Electronic Ordering - All Locations) Patient Can Go To The Location Of Their Choice, 06/17/2015 14:11:32 06/17/20 15 06/17/2015 CBC w/ auto diff lymph 23.9 % (15-43 ) Not Available [facility] (Centralized Electronic Ordering - All Locations) Patient Can Go To The Location Of Their Choice, 06/17/2015 14:11:32 06/17/20 15 06/17/2015 CBC w/ auto diff monocyte 8.3 % (4.5-1 0.5) Not Available [facility] (Centralized Electronic Ordering - All Locations) Patient Can Go To The Location Of Their Choice, 06/17/2015 14:11:32 06/17/20 15 06/17/2015 CBC w/ auto diff eo 1.5 % (0-6) Not Available [facility] (Centralized Electronic Ordering - All Locations) Patient Can Go To The Location Of Their Choice, 06/17/2015 14:11:32 06/17/20 15 06/17/2015 CBC w/ auto diff baso 0.7 % (0-2) Not Available [facility] (Centralized Electronic Ordering - All Locations) Patient Can Go To The Location Of Their Choice, 06/17/2015 14:11:32 06/17/20 15 06/17/2015 CBC w/ auto diff imm gran 0.6 % (0.0-0 .6) Not Available [facility] (Centralized Electronic Ordering - All Locations) Patient Can Go To The Location Of Their Choice, 06/17/2015 14:11:32 06/17/20 15 06/17/2015 toney stero l, total , serum cholesterol, total 174 mg/dL (<200) Not Available [facility] (Centralized [facility] Ordering - All Locations) Patient Can Go To The Location Of Their Choice, 06/17/2015 14:52:21 12/2206/17/2015 CMP, serum or plasm a glucose 91 mg/dL (70-99 ) Not Available [facility] (Centralized Electronic Ordering - All Locations) Patient Can Go To The Location Of Their Choice, 06/17/2015 14:52:24 06/17/2006/17/2015 CMP, serum or plasm a BUN 9 mg/dL (6-20) Not Available [facility] (Centralized Electronic Ordering - All Locations) Patient Can Go To The Location Of Their Choice, 06/17/2015 14:52:24 06/17/2006/17/2015 CMP, serum or plasm a creatinine 0.7 mg/dL (0.5-1 .0) Not Available [facility] (Centralized Electronic Ordering - All Locations) Patient Can Go To The Location Of Their Choice, 06/17/2015 14:52:24 06/17/2006/17/2015 CMP, serum or plasm a sodium 138 mmol/ L (133-1 45) Not Available [facility] (Centralized Electronic Ordering - All Locations) Patient Can Go To The Location Of Their Choice, 06/17/2015 14:52:24 06/17/2006/17/2015 CMP, serum or plasm a potassium 4.4 mmol/ L (3.6-5 .2) Not Available [facility] (Centralized Electronic Ordering - All Locations) Patient Can Go To The Location Of Their Choice, 06/17/2015 14:52:24 06/17/2006/17/2015 CMP, serum or plasm a chloride 101 mmol/ L (98-10 7) Not Available [facility] (Centralized Electronic Ordering - All Locations) Patient Can Go To The Location Of Their Choice, 06/17/2015 14:52:24 06/17/2006/17/2015 CMP, serum or plasm a bicarbonate 25 mmol/ L (22-29 ) Not Available [facility] (Centralized Electronic Ordering - All Locations) Patient Can Go To The Location Of Their Choice, 06/17/2015 14:52:24 06/17/2006/17/2015 CMP, serum or plasm a anion gap 12 (4-17) Not Available [facility] (Centralized Electronic Ordering - All Locations) Patient Can Go To The Location Of Their Choice, 06/17/2015 14:52:24 06/17/20 15 06/17/2015 CMP, serum or plasm a albumin 4.4 gm/dL (3.4-4 .8) Not Available [facility] (Centralized Electronic Ordering - All Locations) Patient Can Go To The Location Of Their Choice, 06/17/2015 14:52:24 06/17/20 15 06/17/2015 CMP, serum or plasm a calcium 9.0 mg/dL (8.6-1 0.5) Not Available [facility] (Centralized Electronic Ordering - All Locations) Patient Can Go To The Location Of Their Choice, 06/17/2015 14:52:24 06/17/20 15 06/17/2015 CMP, serum or plasm a bilirubin,to keya 0.3 mg/dL (0-1.2 ) Not Available [facility] (Centralized Electronic Ordering - All Locations) Patient Can Go To The Location Of Their Choice, 06/17/2015 14:52:24 06/17/20 15 06/17/2015 CMP, serum or plasm a total protein 7.3 gm/dL (6.2-8 .2) Not Available [facility] (Centralized Electronic Ordering - All Locations) Patient Can Go To The Location Of Their Choice, 06/17/2015 14:52:24 06/17/20 15 06/17/2015 CMP, serum or plasm a Ag ratio 1.5 Not Available [facility] (Centralized Electronic Ordering - All Locations) Patient Can Go To The Location Of Their Choice, 06/17/2015 14:52:24 06/17/20 15 06/17/2015 CMP, serum or plasm a AST 15 U/L (0-32) Not Available [facility] (Centralized Electronic Ordering - All Locations) Patient Can Go To The Location Of Their Choice, 06/17/2015 14:52:24 06/17/20 15 06/17/2015 CMP, serum or plasm a alk phos 58 U/L (35-10 4) Not Available [facility] (Centralized Electronic Ordering - All Locations) Patient Can Go To The Location Of Their Choice, 06/17/2015 14:52:24 06/17/20 15 06/17/2015 CMP, serum or plasm a ALT 14 U/L (0-31) Not Available [facility] (Centralized Electronic Ordering - All Locations) Patient Can Go To The Location Of Their Choice, 06/17/2015 14:52:24 06/17/20 15 06/17/2015 CMP, serum or plasm a est GFR non >60 mL/mi n/1.7 3_M2 THE MDRD STUDY 'S ESTIM ATED GFR EQUAT ION HAS NOT BEEN VALID ATED IN CHILD MEET (<18 YRS), PREGN ANT WOMEN , THE ELDER LY (AGE >70 YRS), RACIA L OR ETHNI C SUBGR OUPS OTHER THAN [place] SIANS AND AFRIC AN AMERI CANS. Not Available [facility] (Centralized Electronic Ordering - All Locations) Patient Can Go To The Location Of Their Choice, 06/17/2015 14:52:24 06/17/20 15 06/17/2015 CMP, serum or plasm a est GFR >60 mL/mi n/1.7 3_M2 THE MDRD STUDY 'S ESTIM ATED GFR EQUAT ION HAS NOT BEEN VALID ATED IN CHILD MEET (<18 YRS), PREGN ANT WOMEN , THE ELDER LY (AGE >70 YRS), RACIA L OR ETHNI C SUBGR OUPS OTHER THAN [place] SIANS AND AFRIC AN AMERI CANS. Not Available [facility] (Centralized Electronic Ordering - All Locations) Patient Can Go To The Location Of Their Choice, 06/17/2015 14:52:24 06/17/2006/17/2015 LDL, serum LDL cholesterol, direct 111 mg/dL (<130) Not Available [facility] ([facility] Ordering - All Locations) Patient Can Go To The Location Of Their Choice, 06/17/2015 14:52:29 06/17/20 15 06/17/2015 iron + total iron- vanessa ng capac ity (TIBC ), serum iron 89 mcg/d L (30-16 0) Not Available [facility] (Centralized Electronic Ordering - All Locations) Patient Can Go To The Location Of Their Choice, 06/17/2015 14:52:29 06/17/20 15 06/17/2015 iron + total iron- vanessa ng capac ity (TIBC ), serum unsaturated iron binding capac 274 mcg/d L (110-3 70) Not Available [facility] (Centralized Electronic Ordering - All Locations) Patient Can Go To The Location Of Their Choice, 06/17/2015 14:52:29 06/17/20 15 06/17/2015 iron + total iron- vanessa ng capac ity (TIBC ), serum est T. iron bind capacity 363 mcg/d L (140-5 30) Not Available [facility] (Centralized Electronic Ordering - All Locations) Patient Can Go To The Location Of Their Choice, 06/17/2015 14:52:29 06/17/20 15 06/17/2015 iron + total iron- vanessa ng capac ity (TIBC ), serum % iron saturation 25 % (20-55 ) Not Available [facility] (Centralized Electronic Ordering - All Locations) Patient Can Go To The Location Of Their Choice, 06/17/2015 14:52:29 06/17/20 15 06/17/2015 HDL toney stero l, serum HDL chol 51 mg/dL (>39) Not Available [facility] (Centralized Electronic Ordering - All Locations) Patient Can Go To The Location Of Their Choice, 06/17/2015 14:52:30 06/17/20 15 06/17/2015 TSH, serum or plasm a TSH 2.10 mIU/m L (0.40- 4.00) Not Available [facility] (Centralized Electronic Ordering - All Locations) Patient Can Go To The Location Of Their Choice, 06/17/2015 14:54:44 06/17/20 15 06/17/2015 vitam in B12, serum vitamin B12 342 pg/mL (170-8 70) Not Available [facility] (Centralized Electronic Ordering - All Locations) Patient Can Go To The Location Of Their Choice, 06/17/2015 19:12:16 06/17/20 15 06/17/2015 folat e, serum folic acid 10.5 NG/mL (4.6-3 4.8) Not Available [facility] (Centralized Electronic Ordering - All Locations) Patient Can Go To The Location Of Their Choice, 06/17/2015 19:12:21 06/17/20 15 06/17/2015 vitam in D, 25-hy droxy , total , serum 25OH vitamin D 11.4 NG/mL (20-50 ) low SERUM 25OHD : LESS THAN 12 NG/ML : AT RISK OF VITAM IN D DEFIC IENCY . Refer ence: [facility] Data Brief : No.59 August: Vitam in D Statu s: Unite d State s: 2000- 2005 Not Available [facility] (Centralized Electronic Ordering - All Locations) Patient Can Go To The Location Of Their Choice, 06/17/2015 23:18:08 08/29/19 16 08/29/2015 vitam in D, 25-hy droxy , total , serum 25OH vitamin D 26.8 NG/mL (20-50 ) SERUM 25OHD : 20 TO 50 NG/ML : SUFFI CIENT IN VITAM IN D. Refer ence: [facility] Data Brief : No.59 August: Vitam in D Statu s: Unite d State s: 2000- 2005 Not Available [facility] (Centralized Electronic Ordering - All Locations) Patient Can Go To The Location Of Their Choice, 08/29/2015 23:32:13 11/12/19 16 11/12/2015 urina lysis , compl ete appear/color COLOR LESS CLEAR Not Available [facility] (Centralized Electronic Ordering - All Locations) Patient Can Go To The Location Of Their Choice, 11/12/2015 18:12:41 11/12/19 16 11/12/2015 urina lysis , compl ete sp. gravity 1.003 (1.002 -1.030 ) Not Available [facility] (Centralized Electronic Ordering - All Locations) Patient Can Go To The Location Of Their Choice, 11/12/2015 18:12:41 11/12/19 16 11/12/2015 urina lysis , compl ete urine pH 7.0 (4.0-8 .0) Not Available [facility] (Centralized Electronic Ordering - All Locations) Patient Can Go To The Location Of Their Choice, 11/12/2015 18:12:41 11/12/19 16 11/12/2015 urina lysis , compl ete urine albumin NEGATI VE (neg) Not Available [facility] (Centralized Electronic Ordering - All Locations) Patient Can Go To The Location Of Their Choice, 11/12/2015 18:12:41 11/12/19 16 11/12/2015 urina lysis , compl ete urine glucose NEGATI VE (neg) Not Available [facility] (Centralized Electronic Ordering - All Locations) Patient Can Go To The Location Of Their Choice, 11/12/2015 18:12:41 11/12/1911/12/2015 urina lysis , compl ete urine ketones NEGATI VE (neg) Not Available [facility] (Centralized Electronic Ordering - All Locations) Patient Can Go To The Location Of Their Choice, 11/12/2015 18:12:41 11/12/1911/12/2015 urina lysis , compl ete urine bilirubin NEGATI VE (neg) Not Available [facility] (Centralized Electronic Ordering - All Locations) Patient Can Go To The Location Of Their Choice, 11/12/2015 18:12:41 11/12/1911/12/2015 urina lysis , compl ete urine hemoglobn 3+ (neg) abnormal Not Available [facility] ([facility] Ordering - All Locations) Patient Can Go To The Location Of Their Choice, 11/12/2015 18:12:41 11/12/1911/12/2015 urina lysis , compl ete urine nitrite NEGATI VE (neg) Not Available [facility] (Centralized Electronic Ordering - All Locations) Patient Can Go To The Location Of Their Choice, 11/12/2015 18:12:41 11/12/1911/12/2015 urina lysis , compl ete urine leukocyte NEGATI VE (neg) Not Available [facility] (Centralized Electronic Ordering - All Locations) Patient Can Go To The Location Of Their Choice, 11/12/2015 18:12:41 11/12/1911/12/2015 urina lysis , compl ete urobilinogen NORMAL mg/dL (norm) Not Available [facility] (Centralized Electronic Ordering - All Locations) Patient Can Go To The Location Of Their Choice, 11/12/2015 18:12:41 11/12/1911/12/2015 urina lysis , compl ete urine WBC's <1 /hpf (0-5) Not Available [facility] (Centralized Electronic Ordering - All Locations) Patient Can Go To The Location Of Their Choice, 11/12/2015 18:12:41 11/12/1911/12/2015 urina lysis , compl ete urine RBC's 1 /hpf (<3) Not Available [facility] (Centralized Electronic Ordering - All Locations) Patient Can Go To The Location Of Their Choice, 11/12/2015 18:12:41 11/12/19 16 11/12/2015 urina lysis , compl ete squamous epith 1 /hpf Not Available [facility] (Centralized Electronic Ordering - All Locations) Patient Can Go To The Location Of Their Choice, [id number] 11/12/2015 18:12:41 11/12/19 16 11/13/2015 CT + NG DNA, PCR, urine urine chlamydia amp probe NEGAT ROMEO No Chlam ydia Trach omati s RNA detec radha in this patie nt's sampl e (REFE RENCE RANGE /NORM AL VALUE : NOT DETEC RADHA) Not Available [facility] (Centralized Electronic Ordering - All Locations) Patient Can Go To The Location Of Their Choice, 11/13/2015 14:03:12 11/12/19 16 11/13/2015 CT + NG DNA, PCR, urine urine GC amp probe NEGAT ROMEO No Neiss eria Gonor rhoea e RNA detec radha in this patie nt's sampl e (REFE RENCE RANGE /NORM AL VALUE : NOT DETEC RADHA) NOTE: This test uses trans cript ion-m ediat ed ampli ficat ion metho d to detec t rRNA from C.Tra choma tis and N.Reinaldo orrho eae. A negat romeo resul t does not precl ude infec tion. In the case of a negat romeo urine resul t, testi ng of an endoc ervic al(fe male) or ureth ral(m zabrina) speci men is recom usman d if there is high clini jorge suspi cion of infec tion. The perfo rmanc e luiza cteri stics of this test have not been evalu ated in child meet. The Aptim a Combo 2 assay is not inten ded for the evalu ation of suspe cted sexua l abuse or for other medic o-leg al indic ation s. The order ing provi nivia shoul d asses s if the patie nt had conse nsual sex witho ut risk of sexua l abuse . [facility] if neede d. Conta ct phone numbe r . Thera peuti c failu re or succe ss canno t be deter mined with the Aptim a Combo 2 assay since nucle ic acid may persi st follo wing appro priat e antim icrob ial thera py. The [facility] Preve ntion ([facility]) recom mends confi rmato ry retes ting using cultu re or a diffe rent nucle ic acid ampli ficat ion test when posit romeo resul ts occur , if indic ated. Not Available [facility] (Centralized Electronic Ordering - All Locations) Patient Can Go To The Location Of Their Choice, 11/13/2015 14:03:12 11/12/19 16 11/12/2015 cultu re, urine specimen description URINE CLEAN CATCH/ MIDSTR EAM BD TRANSP ORT TUBE Not Available [facility] (Centralized Electronic Ordering - All Locations) Patient Can Go To The Location Of Their Choice, 11/14/2015 07:16:33 11/12/19 16 11/12/2015 cultu re, urine special requests NONE Not Available [facility] (Centralized Electronic Ordering - All Locations) Patient Can Go To The Location Of Their Choice, 11/14/2015 07:16:33 11/12/19 16 11/13/2015 cultu re, urine culture NO GROWTH Not Available [facility] (Centralized Electronic Ordering - All Locations) Patient Can Go To The Location Of Their Choice, 11/14/2015 07:16:33 11/12/19 16 11/14/2015 cultu re, urine report status FINAL 2015 Not Available [facility] (Centralized Electronic Ordering - All Locations) Patient Can Go To The Location Of Their Choice, 11/14/2015 07:16:33 04/19/20 16 04/19/2016 CBC w/ auto diff WBC 8.6 K/mm3 (4.0-1 1.0) Not Available [facility] (Centralized Electronic Ordering - All Locations) Patient Can Go To The Location Of Their Choice, 04/19/2016 19:45:32 04/19/20 16 04/19/2016 CBC w/ auto diff RBC 5.34 M/mm3 (4.20- 5.40) Not Available [facility] (Centralized Electronic Ordering - All Locations) Patient Can Go To The Location Of Their Choice, 04/19/2016 19:45:32 04/19/20 16 04/19/2016 CBC w/ auto diff HGB 10.4 gm/dL (12.0- 16.0) low Not Available [facility] (Centralized Electronic Ordering - All Locations) Patient Can Go To The Location Of Their Choice, 04/19/2016 19:45:32 04/19/20 16 04/19/2016 CBC w/ auto diff HCT 35.1 % (37.0- 47.0) low Not Available [facility] (Centralized Electronic Ordering - All Locations) Patient Can Go To The Location Of Their Choice, 04/19/2016 19:45:32 04/19/20 16 04/19/2016 CBC w/ auto diff MCV 65.7 fL (80.0- 100.0) low Not Available [facility] (Centralized Electronic Ordering - All Locations) Patient Can Go To The Location Of Their Choice, 04/19/2016 19:45:32 04/19/20 16 04/19/2016 CBC w/ auto diff MCH 19.5 pg (27.0- 34.0) low Not Available [facility] (Centralized Electronic Ordering - All Locations) Patient Can Go To The Location Of Their Choice, 04/19/2016 19:45:32 04/19/20 16 04/19/2016 CBC w/ auto diff MCHC 29.6 g/dL (33.0- 37.0) low Not Available [facility] (Centralized Electronic Ordering - All Locations) Patient Can Go To The Location Of Their Choice, 04/19/2016 19:45:32 04/19/20 16 04/19/2016 CBC w/ auto diff plt 340 K/mm3 (150-4 60) Not Available [facility] (Centralized Electronic Ordering - All Locations) Patient Can Go To The Location Of Their Choice, 04/19/2016 19:45:32 04/19/20 16 04/19/2016 CBC w/ auto diff RDW-SD 33.2 fL (<47.0 ) Not Available [facility] (Centralized Electronic Ordering - All Locations) Patient Can Go To The Location Of Their Choice, 04/19/2016 19:45:32 04/19/20 16 04/19/2016 CBC w/ auto diff MPV 11.6 fL (9.4-1 2.4) Not Available [facility] (Centralized Electronic Ordering - All Locations) Patient Can Go To The Location Of Their Choice, 04/19/2016 19:45:32 04/19/2004/19/2016 CBC w/ auto diff automated NRBC 0.0 #/100 _WBC' s Not Available [facility] (Centralized Electronic Ordering - All Locations) Patient Can Go To The Location Of Their Choice, 04/19/2016 19:45:32 04/19/20 16 04/19/2016 CBC w/ auto diff abs. NRBC 0.0 K/mm3 Not Available [facility] (Centralized Electronic Ordering - All Locations) Patient Can Go To The Location Of Their Choice, 04/19/2016 19:45:32 04/19/2004/19/2016 CBC w/ auto diff neut # 5.5 K/mm3 (1.3-7 .0) Not Available [facility] (Centralized Electronic Ordering - All Locations) Patient Can Go To The Location Of Their Choice, 04/19/2016 19:45:32 04/19/20 16 04/19/2016 CBC w/ auto diff lymph # 2.5 K/mm3 (0.8-3 .1) Not Available [facility] (Centralized Electronic Ordering - All Locations) Patient Can Go To The Location Of Their Choice, 04/19/2016 19:45:32 04/19/20 16 04/19/2016 CBC w/ auto diff mono# 0.5 K/mm3 (0.4-0 .9) Not Available [facility] (Centralized Electronic Ordering - All Locations) Patient Can Go To The Location Of Their Choice, 04/19/2016 19:45:32 04/19/2004/19/2016 CBC w/ auto diff eo # 0.1 K/mm3 (0.0-0 .4) Not Available [facility] (Centralized Electronic Ordering - All Locations) Patient Can Go To The Location Of Their Choice, 04/19/2016 19:45:32 04/19/20 16 04/19/2016 CBC w/ auto diff baso # 0.1 K/mm3 (0.0-0 .1) Not Available [facility] (Centralized Electronic Ordering - All Locations) Patient Can Go To The Location Of Their Choice, 04/19/2016 19:45:32 04/19/20 16 04/19/2016 CBC w/ auto diff abs. imm gran 0.0 K/mm3 Not Available [facility] (Centralized Electronic Ordering - All Locations) Patient Can Go To The Location Of Their Choice, 04/19/2016 19:45:32 04/19/20 16 04/19/2016 CBC w/ auto diff neut 63.7 % (44-76 ) Not Available [facility] (Centralized Electronic Ordering - All Locations) Patient Can Go To The Location Of Their Choice, 04/19/2016 19:45:32 04/19/20 16 04/19/2016 CBC w/ auto diff lymph 28.5 % (15-43 ) Not Available [facility] (Centralized Electronic Ordering - All Locations) Patient Can Go To The Location Of Their Choice, 04/19/2016 19:45:32 04/19/20 16 04/19/2016 CBC w/ auto diff monocyte 5.9 % (4.5-1 0.5) Not Available [facility] (Centralized Electronic Ordering - All Locations) Patient Can Go To The Location Of Their Choice, 04/19/2016 19:45:32 04/19/2004/19/2016 CBC w/ auto diff eo 0.9 % (0-6) Not Available [facility] (Centralized Electronic Ordering - All Locations) Patient Can Go To The Location Of Their Choice, 04/19/2016 19:45:32 04/19/20 16 04/19/2016 CBC w/ auto diff baso 0.7 % (0-2) Not Available [facility] (Centralized Electronic Ordering - All Locations) Patient Can Go To The Location Of Their Choice, 04/19/2016 19:45:32 04/19/20 16 04/19/2016 CBC w/ auto diff imm gran 0.3 % (0.0-0 .6) Not Available [facility] (Centralized Electronic Ordering - All Locations) Patient Can Go To The Location Of Their Choice, 04/19/2016 19:45:32 04/19/2004/19/2016 hepat ic funct ion panel , serum bilirubin,to keya 0.4 mg/dL (0-1.2 ) Not Available [facility] (Centralized Electronic Ordering - All Locations) Patient Can Go To The Location Of Their Choice, 04/19/2016 20:02:17 04/19/20 16 04/19/2016 hepat ic funct ion panel , serum bilirubin, direct 0.1 mg/dL (0-0.3 ) Not Available [facility] (Centralized Electronic Ordering - All Locations) Patient Can Go To The Location Of Their Choice, 04/19/2016 20:02:17 04/19/20 16 04/19/2016 hepat ic funct ion panel , serum indirect bilirubin 0.3 mg/dL (0.0-0 .7) Not Available [facility] (Centralized Electronic Ordering - All Locations) Patient Can Go To The Location Of Their Choice, 04/19/2016 20:02:17 04/19/20 16 04/19/2016 hepat ic funct ion panel , serum albumin 4.4 gm/dL (3.4-4 .8) Not Available [facility] (Centralized Electronic Ordering - All Locations) Patient Can Go To The Location Of Their Choice, 04/19/2016 20:02:17 04/19/20 16 04/19/2016 hepat ic funct ion panel , serum AST 15 U/L (0-32) Not Available [facility] (Centralized Electronic Ordering - All Locations) Patient Can Go To The Location Of Their Choice, 04/19/2016 20:02:17 04/19/20 16 04/19/2016 hepat ic funct ion panel , serum ALT 13 U/L (0-31) Not Available [facility] (Centralized Electronic Ordering - All Locations) Patient Can Go To The Location Of Their Choice, 04/19/2016 20:02:17 04/19/20 16 04/19/2016 hepat ic funct ion panel , serum alk phos 52 U/L (35-10 4) Not Available [facility] (Centralized Electronic Ordering - All Locations) Patient Can Go To The Location Of Their Choice, 04/19/2016 20:02:17 04/19/20 16 04/19/2016 hepat ic funct ion panel , serum total protein 7.1 gm/dL (6.2-8 .2) Not Available [facility] (Centralized Electronic Ordering - All Locations) Patient Can Go To The Location Of Their Choice, 04/19/2016 20:02:17 04/19/20 16 04/19/2016 lipas e, serum or plasm a lipase 18 U/L (13-60 ) Not Available [facility] (Centralized Electronic Ordering - All Locations) Patient Can Go To The Location Of Their Choice, 04/19/2016 20:02:19 04/19/20 16 04/20/2016 H pylor i igm+i gg+ig a Ab, serum H. pylori IgG NEGAT ROMEO NOTE: THIS TEST SHOUL D ONLY BE PERFO RMED ON PATIE NTS WITH SYMPT OMS SUGGE STIVE OF GASTR OINTE KHALIDA L DISEA SE. PERFO RMANC E LUIZA CTERI STICS CORRE LATE WITH PRETE ST PROBA BILIT Y, AND PREVA LENCE INCRE ASES WITH AGE. THIS TEST HAS NOT BEEN SPECI FICAL LY EVALU ATED IN PEDIA TRIC POPUL ATION S, A LOWER PREVA LENCE GROUP . PLEAS E INTER PRET RESUL TS TOGET HER WITH CLINI JORGE AND OTHER DIAGN OSTIC FINDI NGS, AND NOTE THAT A POSIT ROMEO RESUL T DOES NOT DISTI NGUIS H ACTIV E INFEC TION FROM COLON IZATI ON BY H.PYL DYLAN. Not Available [facility] (Centralized Electronic Ordering - All Locations) Patient Can Go To The Location Of Their Choice, 04/20/2016 11:13:40 03/03/2003/03/2018 CBC w/ auto diff WBC 7.3 K/mm3 (4.0-1 1.0) Not Available [facility] (Centralized Electronic Ordering - All Locations) Patient Can Go To The Location Of Their Choice, 03/03/2018 20:05:35 03/03/2003/03/2018 CBC w/ auto diff RBC 5.80 M/mm3 (4.20- 5.40) high Not Available [facility] (Centralized Electronic Ordering - All Locations) Patient Can Go To The Location Of Their Choice, 03/03/2018 20:05:35 03/03/2003/03/2018 CBC w/ auto diff HGB 11.3 gm/dL (11.7- 15.5) low Not Available [facility] (Centralized Electronic Ordering - All Locations) Patient Can Go To The Location Of Their Choice, 03/03/2018 20:05:35 09/07/03/03/2018 CBC w/ auto diff HCT 37.4 % (35.7- 45.8) Not Available [facility] (Centralized Electronic Ordering - All Locations) Patient Can Go To The Location Of Their Choice, 03/03/2018 20:05:35 03/03/2003/03/2018 CBC w/ auto diff MCV 64.5 fL (80.0- 100.0) low Not Available [facility] (Centralized Electronic Ordering - All Locations) Patient Can Go To The Location Of Their Choice, 03/03/2018 20:05:35 03/03/2003/03/2018 CBC w/ auto diff MCH 19.5 pg (27.0- 34.0) low Not Available [facility] (Centralized Electronic Ordering - All Locations) Patient Can Go To The Location Of Their Choice, 03/03/2018 20:05:35 03/03/2003/03/2018 CBC w/ auto diff MCHC 30.2 g/dL (33.0- 37.0) low Not Available [facility] (Centralized Electronic Ordering - All Locations) Patient Can Go To The Location Of Their Choice, 03/03/2018 20:05:35 03/03/2003/03/2018 CBC w/ auto diff plt 295 K/mm3 (150-4 60) Not Available [facility] (Centralized Electronic Ordering - All Locations) Patient Can Go To The Location Of Their Choice, 03/03/2018 20:05:35 03/03/2003/03/2018 CBC w/ auto diff RDW-SD 34.5 fL (<47.0 ) Not Available [facility] (Centralized Electronic Ordering - All Locations) Patient Can Go To The Location Of Their Choice, 03/03/2018 20:05:35 03/03/2003/03/2018 CBC w/ auto diff MPV 12.5 fL (9.4-1 2.4) high Not Available [facility] (Centralized Electronic Ordering - All Locations) Patient Can Go To The Location Of Their Choice, 03/03/2018 20:05:35 03/03/2003/03/2018 CBC w/ auto diff automated NRBC 0.0 #/100 _WBC' s Not Available [facility] (Centralized Electronic Ordering - All Locations) Patient Can Go To The Location Of Their Choice, 03/03/2018 20:05:03/03/2003/03/2018 CBC w/ auto diff abs. NRBC 0.0 K/mm3 Not Available [facility] (Centralized Electronic Ordering - All Locations) Patient Can Go To The Location Of Their Choice, 03/03/2018 20:05:35 03/03/2003/03/2018 CBC w/ auto diff neut # 4.4 K/mm3 (1.3-7 .0) Not Available [facility] (Centralized Electronic Ordering - All Locations) Patient Can Go To The Location Of Their Choice, 03/03/2018 20:05:03/03/2003/03/2018 CBC w/ auto diff lymph # 2.1 K/mm3 (0.8-3 .1) Not Available [facility] (Centralized Electronic Ordering - All Locations) Patient Can Go To The Location Of Their Choice, 03/03/2018 20:05:03/03/2003/03/2018 CBC w/ auto diff mono# 0.6 K/mm3 (0.4-0 .9) Not Available [facility] (Centralized Electronic Ordering - All Locations) Patient Can Go To The Location Of Their Choice, 03/03/2018 20:05:03/03/2003/03/2018 CBC w/ auto diff eo # 0.1 K/mm3 (0.0-0 .4) Not Available [facility] (Centralized Electronic Ordering - All Locations) Patient Can Go To The Location Of Their Choice, 03/03/2018 20:05:03/03/2003/03/2018 CBC w/ auto diff baso # 0.1 K/mm3 (0.0-0 .1) Not Available [facility] (Centralized Electronic Ordering - All Locations) Patient Can Go To The Location Of Their Choice, 03/03/2018 20:05:03/03/2003/03/2018 CBC w/ auto diff abs. imm gran 0.0 K/mm3 Not Available [facility] ([facility]ized Electronic Ordering - All Locations) Patient Can Go To The Location Of Their Choice, 03/03/2018 20:05:03/03/2003/03/2018 CBC w/ auto diff neut 59.9 % (44-76 ) Not Available [facility] (Centralized Electronic Ordering - All Locations) Patient Can Go To The Location Of Their Choice, 03/03/2018 20:05:03/03/2003/03/2018 CBC w/ auto diff lymph 29.3 % (15-43 ) Not Available [facility] (Centralized Electronic Ordering - All Locations) Patient Can Go To The Location Of Their Choice, 03/03/2018 20:05:03/03/2003/03/2018 CBC w/ auto diff monocyte 8.7 % (4.5-1 0.5) Not Available [facility] (Centralized Electronic Ordering - All Locations) Patient Can Go To The Location Of Their Choice, 03/03/2018 20:05:03/03/2003/03/2018 CBC w/ auto diff eo 1.0 % (0-6) Not Available [facility] (Centralized Electronic Ordering - All Locations) Patient Can Go To The Location Of Their Choice, 03/03/2018 20:05:03/03/2003/03/2018 CBC w/ auto diff baso 0.7 % (0-2) Not Available [facility] (Centralized Electronic Ordering - All Locations) Patient Can Go To The Location Of Their Choice, 03/03/2018 20:05:03/03/2003/03/2018 CBC w/ auto diff imm gran 0.4 % (0.0-0 .6) Not Available [facility] (Centralized Electronic Ordering - All Locations) Patient Can Go To The Location Of Their Choice, 03/03/2018 20:05:35 03/03/2003/03/2018 CMP, serum or plasm a glucose 80 mg/dL (70-99 ) Not Available [facility] (Centralized Electronic Ordering - All Locations) Patient Can Go To The Location Of Their Choice, 03/03/2018 21:42:03/03/2003/03/2018 CMP, serum or plasm a BUN 9 mg/dL (6-20) Not Available [facility] (Centralized Electronic Ordering - All Locations) Patient Can Go To The Location Of Their Choice, 03/03/2018 21:42:18 03/03/2003/03/2018 CMP, serum or plasm a creatinine 0.6 mg/dL (0.5-1 .0) Not Available [facility] (Centralized Electronic Ordering - All Locations) Patient Can Go To The Location Of Their Choice, 03/03/2018 21:42:03/03/2003/03/2018 CMP, serum or plasm a sodium 139 mmol/ L (133-1 45) Not Available [facility] (Centralized Electronic Ordering - All Locations) Patient Can Go To The Location Of Their Choice, 03/03/2018 21:42:03/03/2003/03/2018 CMP, serum or plasm a potassium 4.2 mmol/ L (3.6-5 .2) Not Available [facility] (Centralized Electronic Ordering - All Locations) Patient Can Go To The Location Of Their Choice, 03/03/2018 21:42:03/03/2003/03/2018 CMP, serum or plasm a chloride 102 mmol/ L (98-10 7) Not Available [facility] (Centralized Electronic Ordering - All Locations) Patient Can Go To The Location Of Their Choice, 03/03/2018 21:42:03/03/2003/03/2018 CMP, serum or plasm a bicarbonate 23 mmol/ L (22-29 ) Not Available [facility] (Centralized Electronic Ordering - All Locations) Patient Can Go To The Location Of Their Choice, 03/03/2018 21:42:03/03/2003/03/2018 CMP, serum or plasm a anion gap 14 (4-17) Not Available [facility] (Centralized Electronic Ordering - All Locations) Patient Can Go To The Location Of Their Choice, 03/03/2018 21:42:03/03/2003/03/2018 CMP, serum or plasm a albumin 4.8 gm/dL (3.4-4 .8) Not Available [facility] (Centralized Electronic Ordering - All Locations) Patient Can Go To The Location Of Their Choice, 03/03/2018 21:42:03/03/2003/03/2018 CMP, serum or plasm a calcium 9.2 mg/dL (8.6-1 0.5) Not Available [facility] (Centralized Electronic Ordering - All Locations) Patient Can Go To The Location Of Their Choice, 03/03/2018 21:42:03/03/2003/03/2018 CMP, serum or plasm a bilirubin,to keya 0.6 mg/dL (0-1.2 ) Not Available [facility] (Centralized Electronic Ordering - All Locations) Patient Can Go To The Location Of Their Choice, [id number] 03/03/2018 21:42:03/03/2003/03/2018 CMP, serum or plasm a total protein 7.3 gm/dL (6.2-8 .2) Not Available [facility] (Centralized Electronic Ordering - All Locations) Patient Can Go To The Location Of Their Choice, [id number] 03/03/2018 21:42:03/03/2003/03/2018 CMP, serum or plasm a Ag ratio 1.9 Not Available [facility] (Centralized Electronic Ordering - All Locations) Patient Can Go To The Location Of Their Choice, [id number] 03/03/2018 21:42:03/03/2003/03/2018 CMP, serum or plasm a AST 19 U/L (0-32) Not Available [facility] (Centralized Electronic Ordering - All Locations) Patient Can Go To The Location Of Their Choice, [id number] 03/03/2018 21:42:03/03/2003/03/2018 CMP, serum or plasm a alk phos 64 U/L (35-10 4) Not Available [facility] (Centralized Electronic Ordering - All Locations) Patient Can Go To The Location Of Their Choice, [id number] 03/03/2018 21:42:18 03/03/2003/03/2018 CMP, serum or plasm a ALT 21 U/L (0-33) Not Available [facility] (Centralized Electronic Ordering - All Locations) Patient Can Go To The Location Of Their Choice, [id number] 03/03/2018 21:42:03/03/2003/03/2018 CMP, serum or plasm a est GFR non 111 mL/mi n/1.7 3_M2 Creat inine based estim ated glome rular filtr ation rate (eGFR ) is calcu lated using the Chron ic Kidne y Disea se Epide miolo gy Colla borat ion (CKD- EPI). The CKD-E PI creat inine equat ion has not been valid ated in child meet (<18 years ), pregn ant women or in some racia l or ethni c subgr oups other than Cauca sians and Afric an Ameri cans. Not Available [facility] (Centralized Electronic Ordering - All Locations) Patient Can Go To The Location Of Their Choice, 03/03/2018 21:42:18 03/03/2003/03/2018 CMP, serum or plasm a est GFR 128 mL/mi n/1.7 3_M2 Creat inine based estim ated glome rular filtr ation rate (eGFR ) is calcu lated using the Chron ic Kidne y Disea se Epide miolo gy Colla borat ion (CKD- EPI). The CKD-E PI creat inine equat ion has not been valid ated in child meet (<18 years ), pregn ant women or in some racia l or ethni c subgr oups other than Cauca sians and Afric an Ameri cans. Not Available [facility] (Centralized Electronic Ordering - All Locations) Patient Can Go To The Location Of Their Choice, 03/03/2018 21:42:18 03/03/2003/03/2018 iron + total iron- vanessa ng capac ity (TIBC ), serum iron 155 mcg/d L (30-16 0) Not Available [facility] (Centralized Electronic Ordering - All Locations) Patient Can Go To The Location Of Their Choice, 03/03/2018 21:42:19 03/03/2003/03/2018 iron + total iron- vanessa ng capac ity (TIBC ), serum unsaturated iron binding capac 230 mcg/d L (110-3 70) Not Available [facility] (Centralized Electronic Ordering - All Locations) Patient Can Go To The Location Of Their Choice, 03/03/2018 21:42:03/03/2003/03/2018 iron + total iron- vanessa ng capac ity (TIBC ), serum est T. iron bind capacity 385 mcg/d L (140-5 30) Not Available [facility] (Centralized Electronic Ordering - All Locations) Patient Can Go To The Location Of Their Choice, 03/03/2018 21:42:19 03/03/2003/03/2018 iron + total iron- vanessa ng capac ity (TIBC ), serum % iron saturation 40 % (20-55 ) Not Available [facility] (Centralized Electronic Ordering - All Locations) Patient Can Go To The Location Of Their Choice, 03/03/2018 21:42:19 03/03/2003/03/2018 lipid panel , serum cholesterol, total 206 mg/dL (<200) high Not Available [facility] ([facility] Ordering - All Locations) Patient Can Go To The Location Of Their Choice, 03/03/2018 21:42:20 03/03/2003/03/2018 lipid panel , serum triglyceride 175 mg/dL (<150) high Not Available [facility] ([facility] Order[facility] - All Locations) Patient Can Go To The Location Of Their Choice, 03/03/2018 21:42:20 03/03/2003/03/2018 lipid panel , serum HDL chol 52 mg/dL (>39) Not Available [facility] (Centralized Electronic Ordering - All Locations) Patient Can Go To The Location Of Their Choice, 03/03/2018 21:42:20 03/03/2003/03/2018 lipid panel , serum LDL cholesterol, calculated 119 mg/dL (0-130 ) Not Available [facility] (Centralized Electronic Ordering - All Locations) Patient Can Go To The Location Of Their Choice, 03/03/2018 21:42:20 03/03/2003/03/2018 lipid panel , serum non HDL cholesterol (calc) 154 mg/dL (<160) Not Available [facility] ([facility] Electronic Ordering - All Locations) Patient Can Go To The Location Of Their Choice, 03/03/2018 21:42:20 03/03/2003/03/2018 vitam in B12, serum vitamin B12 390 pg/mL (232-1 245) As of 2017 vitam in B12 assay formu latio n has been modif ied. As a resul t, the new refer ence range is (232- 1245 pg/mL ). Not Available [facility] (Centralized Electronic Ordering - All Locations) Patient Can Go To The Location Of Their Choice, 03/03/2018 22:03:32 03/03/2003/03/2018 T4, free, serum free T4 1.04 NG/dL (0.70- 1.80) Not Available [facility] (Centralized Electronic Ordering - All Locations) Patient Can Go To The Location Of Their Choice, [id number] 03/03/2018 22:03:33 03/03/20 18 03/03/2018 TSH, serum or plasm a TSH 2.35 mIU/m L (0.40- 4.00) Not Available [facility] (Centralized Electronic Ordering - All Locations) Patient Can Go To The Location Of Their Choice, [id number] 03/03/2018 22:03:34 03/03/20 18 03/03/2018 vitam in D, 25-hy droxy , total , serum 25OH vitamin D 22.6 NG/mL (20-50 ) Serum 25OHD : 20 to 50 ng/mL : suffi cient in vitam in D. Refer ence: [facility] Data Brief : No.59 August: Vitam in D Statu s: Unite d [place] s: 2000- 2005 As of , Vitam in D, 25-Hy droxy assay has been watson ed. In some [facility] [place], the new assay may yield a highe r value (up to 15% incre ase) in marilu rison to the old assay . These incre ases would mainl y be notic eable at value s of great er than 50 ng/ml . Not Available [facility] (Centralized Electronic Ordering - All Locations) Patient Can Go To The Location Of Their Choice, [id number] 03/03/2018 22:11:34 07/30/19 16 07/30/2015 imagi ng/di agnos tic resul t No observ ation record ed. [facility] Diagnosit Imaging Dept [address] [place] [address], [place], [address], 07/30/2015 16:55:21 08/04/19 16 08/04/2015 imagi ng/di agnos tic resul t No observ ation record ed. [facility] Radiology & Imaging [address], [address], 08/05/2015 13:42:43 04/22/20 16 04/21/2016 CT abdom en and pelvi s w/ contr ast CT Abdome n and Pelvis W/ Contra st INDICA TION: Persis tent vomiti ng, rule out bowel obstru ction. 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 TECHNI QUE: Spiral CT throug h the abdome n and pelvis with IV contra st format radha in 3 planes . The study was perfor med withou t oral contra st. Weight -based protoc ol using automa tic tube modula tion was used to optimi ze exposu re parame ters. CTDIvo l Body: 8.80 mGy, DLP Body: 597 mGy*cm . COMPAR MERLIN: 011 FINDIN GS: Lung Bases: Linear scarri ng in the right middle lobe and left lower lobe. Mild depend ent atelec tasis in both lower lobes. No pleura l effusi on. Liver: Unrema rkable . Gallbl adder: Unrema rkable Bile ducts: No biliar y ductal dilati on. Spleen : Normal in size and attenu ation. Pancre as: Normal . Adrena l Glands : Normal . Kidney s and Ureter s: No calcul i or hydron ephros is. No suspic ious masses . 2.7 cm cyst in upper pole of the left kidney . A 0.5 cm hypode nsity in the upper pole of the left kidney is too small to charac terize but likely repres ents a cyst. 0.4 and 0.7 cm hypode nsitie s in the upper and lower poles of the right kidney are too small to charac terize but likely repres ents cysts. Scarri ng in the interp olar region of the right kidney is consis tent with a prior partia l right nephre ctomy. Bladde r: Underd istend ed but withou t obviou s abnorm ality. Stomac h, Small bowel and Large Bowel: Normal . Append ix: Normal Perito neum, omentu m and mesent jessica: No ascite s or pneumo perito neum. No omenta l or mesent veronika lesion s. Lymph nodes: No pathol ogical ly enlarg ed lymph nodes. Blood Vessel s: Normal . No aneury sm. No eviden ce of venous thromb osis. Abdomi nal wall: Hernia repair mesh is seen along the midlin e anteri or abdomi nal wall, with dystro phic calcif icatio ns or a second mesh superf icial to the larger mesh. Reprod uctive organs : The uterus is retrov erted but otherw ise unrema rkable . Probab le 2.5 cm left ovaria n cyst. Bones: No acute findin gs. No destru ctive bone lesion . 2 cm focus of sclero sis in the right sacral ala along the SI joint which appear s simila r to the study 2010. IMPRES FAHAD: 1. No acute abdomi nal or pelvic pathol ogy. No eviden ce of bowel obstru ction. 2. Postsu rgical change s from partia l right nephre ctomy. 3. Hernia repair mesh along the midlin e anteri or abdomi nal wall. I have person ally review ed the images and I agree with this report . WSN: [id number] Dictat ed By: Conor Maradiaga MD Dictat ed Date/T fany: 10:31 a Review ed By: Spenser Newsome MD Signed By: Spenser Newsome MD Signed Date/T fany: 12:58 pm Transc ribed By: CSB Transc ribed Date/T fany: 12:53 pm Patien t Class: Outpat ient abigby [facility] (Centralized Electronic Ordering - All Locations) Patient Can Go To The Location Of Their Choice, [id number] 04/22/2016 14:22:07 05/25/20 16 04/21/2016 CT, abdom en + pelvi s, w/ contr ast No observ ation record ed. [facility] (Ct Scan) [address] [place], [address], 05/25/2016 12:53:21 03/09/20 17 03/09/2017 US, scot er No observ ation record ed. [facility] Diagnosit Imaging Dept [address] [place] [address], [address], 03/09/2017 12:40:59 03/09/20 17 03/09/2017 MAMMO , scree quinton, digit al, bilat eral No observ ation record ed. [facility] Diagnosit Imaging Dept [address] [place], [address], 03/09/2017 12:42:02 03/09/20 17 03/09/2017 XR, chest , 2 view No observ ation record ed. [facility] Diagnosit Imaging Dept [address] [place], [address], 03/09/2017 12:42:33 03/11/20 17 03/11/2017 US, selene t, rodneya teral No observ ation record ed. [facility] Diagnosit Imaging Dept [address] [place], [address], 03/13/2017 20:14:02 03/17/20 18 03/16/2018 MAMMO , scree quinton, bilat eral No observ ation record ed. [email or web address] [facility] Diagnosit Imaging Dept [address] [place], [address], 03/17/2018 16:05:55 10/25/19 19 10/24/2018 XR, ankle , 3 or more view No observ ation record ed. [facility] Diagnosit Imaging Dept [address] [place], [address], 10/29/2018 15:30:39 07/04/19 20 07/04/2019 US, luis carlos arroyo No observ ation record ed. [facility] Diagnosit Imaging Dept [address] [place], [address], 07/04/2019 22:56:07 Result Notes None recorded. Problems Name Problem SNOMED Code Status Onset Date Resolution Date Notes Provider Name and Address Organization Details Recorded Time Anemia 619227970 Active ARSEN Shah [address] [facility] [address], [place], [address], [facility] 6 10:14:45 Anxiety state 389495660 Active Anastasia Tucker, [address], [place], [address], [facility] 6 10:14:45 Depressi ve disorder 00357908 Active Seanayad Tucker, [place] [address] [facility] [address], [place], [address], [facility] 6 10:14:45 Kidney disease 52258221 Active Anastasia Tucker, [address] [place] [address], [place], [address], [facility] 6 10:14:45 Migraine 01913663 Active Anastasia Tucker, [address] [address], [place], [address], [facility] 6 10:14:45 Obesity 812114114 Active Anastasia Tucker [address] [address], [place], [address], [facility] 6 10:14:45 Gastroes ophageal reflux disease 014568741 Active Anastasia Tucker, [address] [address], [place], [address], [facility] 6 10:14:45 Malignan t neoplasm of kidney 201825844 Active s/p nephrecto my Hernandez Martinez MD [address] [address], [place], [address], [facility] 6 13:11:35 Mammogra phic mass of breast 794059365 Active Anastasia Tucker [address] [place] [address], [place], [address], [facility] 6 10:14:45 Strain of neck muscle 048945410 Suresh Tucker [address] [address], [place], [address], [facility] 6 10:14:45 Mixed anxiety and depressi ve disorder 279945487 Active Anastasia Tucker [facility] [address] [facility] [address], [facility] [place], [address], [facility] 6 10:14:45 Fatigue 89194599 Active Anastasia Tucker, [facility] [address] [facility] [address], [facility] [place], 9, [facility] 6 10:14:45 Major depressi ve disorder 845821650 Active Anastasia Tucker [place] [address] [facility] [address], [facility] [place] [place], [address], [facility] 6 10:14:45 Vitamin D deficien cy 72907870 Active Anastasia Tucker, [place] [address] [address], [place], [place], 9, [facility] 6 10:14:45 Blood in urine 66811488 Active Hernandez Martinez MD [address] [address], [facility] [place] [place], [address], [facility] 6 13:11:35 Abnormal vaginal bleeding 880330554 Active Hernandez Martinez MD [address] [address], [place], [place], [address], [facility] 6 13:11:35 Screenin g for malignan t neoplasm of cervix Completed 201302/04/2014 RECORDED 4 10:42AM BY LINDA AMAYA MA, ANNOTATIO N/ADDENDU M Anastasia Tucker, [facility] [address] [facility] [address], [facility] [place] [place], [address], [facility] 6 10:14:45 Simple renal cyst 18333834 Active 2015 2.7 cm left upper pole Hernandez Martinez MD [address], [place], [address], [facility] 6 11:43:13 Muscle spasm of head and/or neck 26161009 Completed 201602/17/2018 Hernandez Martinez MD [address], [place], [address], [facility] 8 14:24:41 History of primary malignan t neoplasm of kidney 105178456 Active 2017 Hernandez Martinez MD [address], [place], [address], [facility] 8 14:24:36 Microcyt ic anemia 333921657 Active 2017 Hernandez Martinez MD [address] [facility] [address], [place], [address], [facility] 8 09:54:18 Hypercho lesterol emia 49019171 Active 2017 Hernandez Martinez MD [address] [facility] [address], [facility] [place], [address], [facility] 8 09:54:49 Problem Notes None recorded. Procedures Surgical History Date Name Laterality Status Provider Name and Address Organization Details Recorded Time 8 Most Recent Mammogram completed Irene Dent [facility] 03/17/2018 16:05:33 8 Mammogram screening completed Irene Dent [facility] 03/17/2018 16:05:18 7 Mammogram both breasts completed Linda Amaya [place] [facility] 02/17/2018 13:50:40 6 Egd diagnostic brush wash completed Hernandez Martinez MD [address] [address], [place], [address], [facility] 05/25/2016 13:11:09 5 PHQ-9 completed Hernandez Martinez MD [address] [facility] [address], [place], [address], [facility] 11/22/2014 16:00:35 4 completed Linda Amaya [facility] 02/21/2014 15:29:26 4 Date of Last Pap Smear completed Linda Amaya [facility] 02/21/2014 15:35:13 1 Nephrectomy partial completed Hernandez Martinez MD [address] [address], [place], [address], [facility] 02/17/2018 14:25:53 Hernia Repair completed Hernandez Martinez MD [address] [address], [place], [address], [facility] 02/21/2014 16:08:23 Tubal Ligation completed Linda Amaya [facility] 02/21/2014 15:30:20 Cleft Palate/Lip Repair completed Linda Amaya [facility] 02/21/2014 15:30:20 Imaging Results None recorded. Procedure Notes None recorded. Medical Equipment None Reported. Allergies No known drug allergies Medications Name Sig Start Date Stop Date Status Note LastModified by Organization Details LastModified Time cyclobenz aprine hcl 10 mg tabs active Not Available Not Available Not Available venlafaxi ne hcl er 37.5 mg cp24 active Not Available Not Available Not Available clonazepa m 0.5 mg tabs active Not Available Not Available Not Available cyclobenz aprine 10 mg tablet Take 1 tablet twice a day by oral route as needed for 20 days. 11/11 completed Not Available Not Available Not Available venlafaxi ne ER 75 mg capsule,e xtended release 24 hr Take 1 capsule every day by oral route as directed for 90 days. 02/17 completed Not Available Not Available Not Available venlafaxi ne 75 mg tablet Take 1 tablet twice a day by oral route. 04/19 completed Not Available Not Available Not Available citalopra m 40 mg tablet Take 1 tablet every day by oral route for 30 days. 11/22 completed weaning dose Not Available Not Available Not Available Effexor XR 37.5 mg capsule,e xtended release Take 1 capsule every day by oral route for 30 days. 11/11 completed Not Available Not Available Not Available ondansetr on HCl 4 mg tablet Take 1 tablet every 4-6 hours by oral route as needed. 02/17 completed Not Available Not Available Not Available clonazepa m 0.5 mg tablet take 1 tablet by mouth once daily as directed 2017 active Pt req 90day supply Not Available Not Available Not Available clonazepa m 1 mg tablet take 1 tablet by mouth once daily if needed 2018 active Not Available Not Available Not Avai lable sumatript an 50 mg tablet Take 1 tablet as needed by oral route as needed for 1 day. 02/17 completed Not Available Not Available Not Available triamcino lone acetonide 0.1 % topical cream APPLY A THIN LAYER TO THE AFFECTED AREA(S) BY TOPICAL ROUTE 2 TIMES PER DAY 2017 active Not Available Not Available Not Avai lable citalopra m 20 mg tablet Take 1 tablet every day by oral route for 90 days. 2014 active Not Available Not Available Not Avai lable ranitidin e 150 mg tablet Take 1 tablet twice a day by oral route as needed for 90 days. 2013 active Not Available Not Available Not Avai lable sertralin e 25 mg tablet Take 1 tablet every day by oral route as directed for 90 days. 09/21 completed pt req 90 day supply and states med is working Not Available Not Available Not Available omeprazol e 20 mg capsule,d elayed release Take 1 capsule every day by oral route as directed for 30 days. 2014 active Not Available Not Available Not Avai lable Vitamin D2 1,250 mcg (50,000 unit) capsule Take 1 capsule every week by oral route as directed for 60 days. 11/11 completed Not Available Not Available Not Available sertralin e 50 mg tablet Take 1 tablet every day by oral route as directed for 90 days. 2018 active refill request. ..Pt dismisse d, 30 day window expires on 12/17/18 Not Available Not Available Not Available Sprintec (28) 0.25 mg-0.035 mg tablet Take 1 tablet every day by oral route for 84 days. 02/17 completed Not Available Not Available Not Available cyclobenz aprine 5 mg tablet Take 1 tablet every day by oral route for 20 days. active Not Available Not Available No t Available Readi-Cat 2 2.1 % (w/v), 2.0 % (w/w) oral suspensio n Take 450 mL twice a day by oral route as directed for 1 day. 02/17 completed Not Available Not Available Not Available Vitamin D3 2 tabs daily active Not Available Not Available No t Available turmeric root extract 500 mg capsule Take 1 capsule every day by oral route. active Not Available Not Available No t Available Multi Vitamin 1 po daily 02/17 completed Not Available Not Available Not Available Vitals Date Recorded Body height Body mass index (BMI) Body weight Oxygen saturation Heart rate Body temperature Systolic And Diastolic Provider Name and Address Organization Details Last Updated DateTime 6 170.815 cm 31.4 kg/m2 60783.9 58347 g 98 % 83 /min 98.7 [degF] 117/80 mm[Hg] Eliza Billingsley [facility] 6 10:09:15 Date Recorded Body height Body mass index (BMI) Body weight Heart rate Body temperature Oxygen saturation Systolic And Diastolic Provider Name and Address Organization Details Last Updated DateTime 8 170.82 cm 32.3 kg/m2 06538.2 1 g 85 /min 97.5 [degF] 99 % 103/67 mm[Hg] Linda Amaya MA [facility] 8 13:55:07 Date Recorded Body height Oxygen saturation Heart rate Body temperature Body weight Body mass index (BMI) Systolic And Diastolic Provider Name and Address Organization Details Last Updated DateTime 6 170.815 cm 97 % 75 /min 98.1 [degF] 98001.4 7 g 31.1 kg/m2 92/60 mm[Hg] Cuca felix [facility] 6 13:56:15 Date Recorded Body height Body weight Oxygen saturation Body mass index (BMI) Heart rate Systolic And Diastolic Provider Name and Address Organization Details Last Updated DateTime 5 170.815 cm 52204.8 53124 g 99 % 31.5 kg/m2 78 /min 111/71 mm[Hg] Joann Thomas MA [facility] 5 09:17:24 Social History Question Answer Notes LastModified by Organizat ion Details LastModified Time Tobacco Smoking Status Never Smoker TEETEE Rodrigues, [facility] 02/21/2014 15:29:25 Do You Have An Advance Directive? Yes HCP/ [employer] Information not available 02/17/2018 Is Blood Transfusion Acceptable In An Emergency? Yes [email or web address] Information not available 06/17/2015 What Is Your Level Of Caffeine Consumption? Moderate Coffee Information not available 02/21/2014 How Much Tobacco Do You Chew? None Information not available 04/19/2016 What Type Of Diet Are You Following? REGULAR Information not available 02/21/2014 Which Illicit Or Recreational Drugs Have You Used? Marijuana Socially, No IVDU Information not available 04/19/2016 Live Alone Or With Others? With Others Boyd Castro And Lucila Information not available 02/21/2014 Do You Take Precautions To Prevent Distracted Driving? Yes [email or web address] Information not available 06/17/2015 How Often Do You Need To Have Someone Help You When You Read Instructions, Pamphlets, Or Other Written Material From Your Doctor Or Pharmacy? Never Information not available 02/17/2018 Have You Served In The ? No Information not available 04/19/2016 What Was The Date Of Your Most Recent Tobacco Screening? 02/17/2018 Information not available 01/18/2019 How Many Children Do You Have? 2 Information not available 02/21/2014 Do You Use Protection During Sex? Always Information not available 02/21/2014 What Is Your Relationship Status? Single [email or web address] Information not available 06/17/2015 Seat Belts Used Routinely Yes Information not available 02/21/2014 Are You Sexually Active? Yes Information not available 02/21/2014 Smoke Alarm In Home Yes Information not available 04/19/2016 At What Age Did You Start Smoking Tobacco? 0 Information not available 04/19/2016 Are You Passively Exposed To Smoke? No Information not available 04/19/2016 How Much Tobacco Do You Smoke? No Information not available 04/19/2016 General Stress Level Medium Information not available 02/21/2014 Do You Use Sunscreen Routinely? Yes Information not available 02/21/2014 How Many Years Have You Smoked Tobacco? 0 Information not available 04/19/2016 Sex: Unknown Functional Status Question Answer Note LastModified by Organizat ion Details LastModified Time What is your level of alcohol consumption? Occasional Information not available 02/21/2014 Are you currently employed? Yes Information not available 02/21/2014 Are you able to care for yourself independently? 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 Occasional Information not available 02/17/2018 Mental Status None recorded. Family History Relationship Description Onset Age of this Age Resolved Age Notes LastModified by Organization Details LastModified Time Mother Depressive disorder [email or web address] Not available 06/17 09:14:01 Maternal Grandmother Heart disease [email or web address] Not available 06/17 09:14:01 Maternal Grandfather Malignant neoplasm of lung [email or web address] Not available 06/17 09:14:01 Notes:Bilogical father's his tory unkonown Medical History Condition Response Anxiety Disorder Y Anemia Y Cancer Y Kidney Stones Y Depression Y Gynecological History Statement/Question Response Flow Heavy 01/28/2014 Date of Last Colonoscopy Most Recent Bone Density Menses Monthly Y Date of Last Pap Smear 12/21/2013 Duration of Flow (days) 7 Most Recent Mammogram 03/16/2018 Current Control Method Tubal Ligat ion LMP Approximate Obstetrics History GPAL:G 0 P 0 0 0 0 Immunizations Vaccine Type Date Status Note Provider Nam e and Address Organization Details Recorded Time Influenza, split virus, quadrivalent, PF 02/25/2015 completed TEETEE Berry [facility] 06/17/2015 09:12:59 Tdap 02/21/2014 completed Not Available [facility] 07/14/2019 02:21:44 Past Encounters Encounter ID Performer Location Encounter Start Date Encounter Closed Date Diagnosis/Indication Diagnosis SNOMED-CT Code Diagnosis ICD10 Code Diagnosis IMO Codes Diagnosis Note [id number] Hernandez Martinez MD Main Office [address] [facility] [address] [facility] [place] [address] 02/21/2014 14:57:07 02/21/2014 16:44:22 Adult health examination 773457661 Will update immunizati on and screening status. Regular dental and ophtho care advised. Seatbelt and sunscreen use advised. Distracted driving discussed. Advance directives in place. Depressive disorder 68590206 Stable but med may be affording some side effects (decreased libido/fat igue). WIll reassess at f/u. Anemia 662909663 Pt report s a history of thalessemi a but in the context of DUB may be severe. 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 Execise habits limited by fatigue. Pt will work on increased physical activity while I work on evaluating the fatigue. Kidney disease 46189220 Farrell s history of renal cancer. Followed regularly by urology. Gastroesop hageal reflux disease 588329336 Stable. Will conitnue current regimen. [id number] Hernandez Martinez MD Main Office [address] [facility] [address] [facility] [place] [address] 11/22/2014 15:22:07 11/22/2014 16:13:22 Depressive disorder 57291623 Stable b ut med may be affording some side effects (decreased libido/fat igue). WIll reassess at f/u. Strain of neck muscle 461185354 Exam findings c/w trap enthesopat hy. Will try heat/col and home PT along with PRN muscle relaxant. INB/worse would consider PT vs PMR eval. Mixed anxi ety and depressive disorder 277492454 Stable with SSRI wean, and SSRI may be affording side effects so will continue trying to wean and reassess. If anxiety worsens would consider adding or substituti ng buproprion or another SNRI. Fatigue 01407349 May be medication related. Labs unremarkab le. Will monitor with med adjustment s. [id number] ARSEN Shah Main Office [address] [place] [address] 06/17/2015 08:54:06 06/17/2015 09:57:08 Anxiety state 848520391 F41.1 Adult heal th examination 711366626 Z00.00 Will update immunizati on status and screen based on risk factors. Regular dental care, periodic eye examinatio ns, and safety measures advised. Distracted driving discussed. Major depr essive disorder 235659730 F32.9 Will increase effexor to 75mg daily. Gastroesop hageal reflux disease 830288231 K21.9 I recommedn she start omeprazole daily for GERD as this may be contributi ng to her morning nausea, she may also try a snack at bedtime. Vitamin D deficiency 347 [address]6963 E55.9 Will recheck Anemia 890752156 D64.9 Fatigue 91449406 R53.83 Hx thalassemi a, alsways feels fatigued, [facility] Hyperlipid emia screening 688517622 Z13.220 [id number] ARSEN Shah Main Office [address] [place] [address] 11/12/2015 09:52:57 11/12/2015 10:42:12 Exposure to sexually transmissible disorder 238815842 Z20.2 Blood in urine 39752119 R31.9 urine dip shows large blood but otherwise negative, upon exam bleeding is vaginal. Malignant neoplasm of kidney 422112351 C64.9 In remission, partial nephrectom y on right, concerned due to bleeding, initially had persistent vomiting , no urinary symptoms. Abnormal v aginal bleeding 570816487 N93.9 Had menses 2 days ago, bleeding is vaginal and heavy, liquid not like her menses. Will get abd/ transvag US as she also has some abd / back pain. Recommend she call Dr. Lee for an appointmen t/ f/u of this. [id number] Markus Scott MD Main Office [address] [place] [address] 04/19/2016 13:30:48 04/19/2016 14:50:47 Nausea and vomiting 21085734 R11.2 Upper abdominal pain 831 56482 R10.10 [id number] Hernandez Maritnez MD Main Office [address] [facility] [address] [place] [address] 02/17/2018 13:13:08 02/17/2018 14:50:34 Adult health examination 113612818 Z00.00 Immunizati on status utd, will get flu shot at work. Will screen based on risk factors. Regular dental and ophtho care advised. Seat belt and sunscreen use advised. Distracted driving discussed. Advance directives in place. 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 Anxiety state 698774975 F41.1 Will see if SSRI curbs benzo requiremen t. Vitamin D deficiency 347 34349 E55.9 Will recheck Fatigue 10604307 R53.83 Hx thalassemi a, alsways feels fatigued, will check labs Anemia 384540181 D64.9 Pt reports a history of thalessemi a but in the context of DUB may be severe. 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 Execise habits limited by fatigue. Pt will work on increased physical activity while I work on evaluating the fatigue. Body mass index 30+ - obesity [id number] Z68.32 Eczema [id number] L30.9 Intermitte nt on chest associated with stress. Will see if steroid cream helps. Screening for malignant neoplasm of breast [id number] Z12.39 [id number] Hernandez Martinez MD Main Office [address] [facility] [address] [place] [phone] 06/13/2018 08:52:43 06/13/2018 11:32:19 Health Concerns Section Related Observation LastModified by Organization Detai ls LastModified Time None Recorded Concern Status LastModified by Organization Details LastModified Time None Recorded Advance Directives Directive Y: HCP/ Sons Matthwe and Jonathan Payers Insurance Date Sequence Insurance Name Policy Number Policy Quintero Covered Member ID Quintero Member ID Guarantor Name 11/22/[address] [place] [address] ([facility] [id number] Isabelle Silva [id number] Isabelle Silva Notes Date Note Type Note Provider Name and Address Organization Details Recorded Time 06/17/2015 text/html Generic HPI TemplateReported by PatientPatient presents for PE today, she has a few concerns. She is waking up nauseous every morning- feels it is severe, dry heaving, eyes watering, feels she wants to throw up. This

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
--- OUTSIDE RECORDS SUMMARY | 2025-05-22 17:42 | XMS_ITS | Encounter Summary ---
Author Organization [employer] Address [address] [place] [address] Care Team Providers Care Truck Body Builder Name Role Phone Bhupinder George MD Primary Care Prov ider Encounter Details Date Type Department Care Team ([facility] st Contact Info) Description 05/06/2025 Orders Only [facility] [address] [place], [place] [phone] Bhupinder George MD [address] [place] [address] Anemia, unspecified type (Primary Dx) Social History Tobacco Use Types [...] Upcoming Encounters Date Type Department Care Team ([facility] st Contact Info) Description 06/11/2025 9:00 AM EST Procedure Visit [facility] [address] [place] [address] Cristal Marie MD [address] [place] [address] 06/14/2025 9:30 AM EST Office Visit [facility] [address] [place] [address] Bhupinder George MD [address] [place] [address] Scheduled Orders Name Type Priority Associated Diagnoses Orde r Schedule Iron And Total Iron Binding Capacity Lab Routine Anemia, unspecified type Expected: 05/06/2025, Expires: 05/06/2026 Vitamin B12 (Cobalamin) and Folate Panel, Serum Lab Routine Anemia, unspecified type Expected: 05/06/2025 (Approximate), Expires: 05/06/2026 documented as of this encounter Visit Diagnoses Diagnosis Anemia, unspecified type- Primary documented in this encounter Additional Health Concerns Assessment Noted Time PHQ-9 Depression Total Score: 18 025 11:36 AM EDT documented as of this encounter Care Teams Truck Body Builder Relationship Specialty Start Date End Date Bhupinder George MD [address] [place] [address] PCP - General Internal Medicine 02/13/25 documented as of this encounter
--- OUTSIDE RECORDS SUMMARY | 2025-05-22 17:42 | XMS_ITS | Encounter Summary ---
Author Organization [employer] Address [address] [place] [address] 7 [place] [address] Care Team Providers Care Flask Pusher Name Role Phone Bhupinder George MD Primary Care Prov ider Encounter Details Date Type Department Care Team (Late st Contact Info) Description 03/04/2025 Orders Only [facility] [address] [place] [address] Provider, MD Carl Social History Tobacco Use Types Packs/Day Years [...] Description 06/11/2025 9:00 AM EST Procedure Visit [facility] [address] [place] [address] Cristal Marie MD [address] [place] [address] 06/14/2025 9:30 AM EST Office Visit [facility] [address] [place] [address] Bhupinder George MD [address] [place] [address] documented as of this encounter Procedures Procedure [...] on filedocumented in this encounter Care Teams Flask Pusher Relationship Specialty Start Date End Date StarkBhupinder Stratton MD [address] [place] [id number] PCP - General Internal Medicine 02/13/25 documented as of this encounter
--- OUTSIDE RECORDS SUMMARY | 2025-05-22 17:42 | XMS_ITS | Encounter Summary ---
Author Organization [employer] Address [address] [facility] 7 [place] [address] Care Team Providers Care Chief Nursing Executive Name Role Phone Bhupinder George MD Primary Care Prov ider Reason for Visit * Reason Onset Date Comments Med Refill 05/05/2025 Encounter Details Date Type Department Care Team ([facility] st Contact Info) Description 05/05/2025 Refill [facility] [address] [place] [address] Bhupinder George MD [address] [place] [address] Social History Tobacco Use Types Packs/Day Years [...] 06/11/2025 9:00 AM EST Procedure Visit [facility] [address] [place] [address] Cristal Marie MD [address] [place] [address] 06/14/2025 9:30 AM EST Office Visit [facility] [address] [place] [address] Bhupinder George MD [address] [place] [address] documented as of this encounter Visit Diagnoses Not on filedocumented in this encounter Additional Health Concerns Assessment Noted Time PHQ-9 Depression Total Score: 18 025 11:36 AM EDT documented as of this encounter Care Teams Chief Nursing Executive Relationship Specialty Start Date End Date Bhupinder George MD [address] [place] [address] PCP - General Internal Medicine 02/13/25 documented as of this encounter
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
[2025-05-22 18:10] LABS: MANUAL DIFF FLAG NO
[2025-05-22 18:14] LABS: Hematocrit 33.1 % (37.0-47.0); Hemoglobin 10.3 g/dl (12.0-16.0); Imm Gran Abs Auto 0.02 X10*3/uL (0.00-0.03); Imm Gran Pct Auto 0.2 % (0.0-0.4); Lymphocytes Absolute Auto 2.5 X10*3/uL (1.2-4.9); Mean Corpuscular HGB Conc 31.1 g/dl (31.0-35.0); Mean Corpuscular Hemoglobin 19.6 pg (27.0-33.0); NRBC Abs Auto 0.000 X10*3/uL (0.0-0.012); NRBC Pct Auto 0.0 /100WBC (0.0-0.2); Platelet Count 340 X10*3/uL (160-400); Red Blood Count 5.26 X10*6/uL (4.20-5.50); White Blood Count 8.4 X10*3/uL (4.8-10.8)
[2025-05-22 18:15] LABS: Mean Corpuscular Volume 62.9 fL (80.0-98.0)
[2025-05-22 18:37] LABS: Alanine Aminotransferase 28 U/L (0-31); Albumin Level 4.9 g/dL (3.5-5.0); Alkaline Phosphatase 69 U/L (39-117); Anion Gap 13 (12-20); Aspartate Amino Transferase 28 U/L (5-31); Blood Urea Nitrogen 11 mg/dL (9-16); Calcium 9.4 mg/dL (8.4-10.2); Carbon Dioxide 27 mmol/L (22-29); Chloride 104 mmol/L (96-108); Estimated Glomerular Filt Rate > 60; Iron 35 mcg/dL (30-160); Percent Iron Saturation 13 % (15-50); Potassium 3.5 mmol/L (3.3-5.1); Sodium 140 mmol/L (135-145); Total Iron Binding Capacity 275 mcg/dL (228-428); Total Protein 7.5 g/dL (6.5-8.0); Unsaturated Iron Binding 240 ug/dL
== END 2025-05-22 15:13 | disposition home or self-care (01) ==
LOC: HO.CHCLDS 15:12
DX: K62.5 Hemorrhage of anus and rectum (principal)
CPT/HCPCS: 36415; 80053; 83540; 85025